=== PATIENT | female | born 1995 | race American Indian/Alaskan Native ===

== ENCOUNTER 2016-12-04 15:53 | Emergency (ER) | payer MEDICAID ==
[2016-12-04 16:50] VITALS: BP 99/60
--- NOTE | 2016-12-04 17:07 | EDM.PDOC ---
ED HPI GENERAL MEDICAL PROBLEM - General Chief Complaint: ENT Problem Stated Complaint: RT EAR Time Seen by Provider: 12/04/16 17:06 Source of Information: Reports: Patient History Limitations: Reports: No Limitations - History of Present Illness Onset: Today Duration: Other (right ear discomfort with drainage began today) Right Ear Pain Score (Numeric/FACES): 8 - Related Data Allergies Allergy/AdvReac Type Severity Reaction Status Date / Time No Known Allergies Allergy Verified 06/02/16 19:17 Home Meds: Home Meds Mupirocin [Mupirocin] 1 dose TOP TID 06/02/16 [History] Past Medical History - Past Health History Medical/Surgical History: Denies Medical/Surgical History Genitourinary History: Reports: Pyelonephritis 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 - Infectious Disease History Infectious Disease History: Reports: None - Past Surgical History HEENT Surgical History: Reports: Other (See Below) Social & Family History - Family History Family Medical History: Noncontributory - Tobacco Use Smoking Status *Q: Never Smoker Second Hand Smoke Exposure: No - Caffeine Use Caffeine Use: Reports: Soda - Alcohol Use Days Per Week of Alcohol Use: 0 - Recreational Drug Use Recreational Drug Use: No - Living Situation & Occupation Living situation: Reports: Single, with Family Occupation: Employed ED ROS GENERAL - Review of Systems Review Of Systems: See Below Constitutional: Reports: No Symptoms HEENT: Reports: Other (drainage/pressure and pain in right ear today. sinus congestion with clear rhinorrhea.) Respiratory: Reports: No Symptoms Cardiovascular: Reports: No Symptoms Endocrine: Reports: No Symptoms GI/Abdominal: Reports: No Symptoms : Reports: No Symptoms Musculoskeletal: Reports: No Symptoms ED EXAM, DIZZINESS - Physical Exam Exam: See Below Exam Limited By: No Limitations General Appearance: Alert Ears: Other (right ear tm clear, canal erythema/edema mod with grayish debris. left ear tm/canal clear.) Nose: Other (nasal mucosa erythema/edema with clear rhinorrhea) Throat/Mouth: Normal Inspection, Normal Lips, Normal Teeth, Normal Gums, Normal Oropharynx, Normal Voice, No Airway Compromise Head Exam: Atraumatic, Normocephalic Neck: Normal Inspection, Supple, Non-Tender, Full Range of Motion Respiratory/Chest: No Respiratory Distress, Lungs Clear, Normal Breath Sounds Cardiovascular: Normal Peripheral Pulses, Regular Rate, Rhythm Neurological: Alert Psychiatric: Normal Affect Skin Exam: Warm, Dry, Intact, Normal Color, Other (no ant/post cervical lymphadenopathy) Course - Vital Signs Last Recorded V/S: Last Vital Signs Temp 37.2 C 12/04/16 16:49 Pulse 97 12/04/16 16:49 Resp 16 12/04/16 16:49 BP 99/60 12/04/16 16:49 Pulse Ox 100 12/04/16 16:49 Departure - Departure Time of Disposition: 17:11 Disposition: Home, Self-Care 01 Condition: good Clinical Impression: Otitis externa - Discharge Information Instructions: Otitis Externa, [id number] Forms: ED Department Discharge Additional Instructions: Antibiotic as directed. Tylenol as needed for pain. Sudafed over the counter as needed for sinus congestion. Robitussin over the counter as needed to thin sinus congestion. See your provider if no improvement in 5 days.
== END 2016-12-04 17:27 | disposition home or self-care (01) ==
LOC: DL.ED 15:53
DX: H60.91 Unspecified otitis externa, right ear (principal)
CPT/HCPCS: 99282

== ENCOUNTER 2017-04-13 12:05 | Emergency (ER) | payer MEDICAID ==
[2017-04-13 12:59] VITALS: BP 117/70
--- NOTE | 2017-04-13 13:06 | EDM.PDOC ---
ED HPI GENERAL MEDICAL PROBLEM - General Chief Complaint: ENT Problem Stated Complaint: SINUS PLUGGED, HEADACHE Time Seen by Provider: 04/13/17 12:40 Source of Information: Reports: Patient History Limitations: Reports: No Limitations - History of Present Illness INITIAL COMMENTS - FREE TEXT/NARRATIVE: Patient presents to the ER with c/o of sinus pressure and drainage, rhinorrhea, watery eyes beginning last evening at 6-7pm. She states her boyfriend has a cold as well. Denies cough, sore throat, fever, chills, N/V/D, sob. She states she is eating and drinking fine. The patient is . 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 Hematologic History: Reports: Anemia - Infectious Disease History Infectious Disease History: Reports: None - Past Surgical History HEENT Surgical History: Reports: Other (See Below) Social & Family History - Family History Family Medical History: Noncontributory - Tobacco Use Smoking Status *Q: Never Smoker Second Hand Smoke Exposure: No - Caffeine Use Caffeine Use: Reports: Soda - Alcohol Use Days Per Week of Alcohol Use: 0 - Recreational Drug Use Recreational Drug Use: No - Living Situation & Occupation Living situation: Reports: Single, with Family Occupation: Employed ED ROS ENT - Review of Systems Review Of Systems: ROS reveals no pertinent complaints other than HPI. ED EXAM, ENT - Physical Exam Exam: See Below Exam Limited By: No Limitations General Appearance: Alert, WD/WN, No Apparent Distress Eye Exam: Bilateral Eye: Normal Inspection, PERRL Ears: Normal External Exam, Normal Canal, Hearing Grossly Normal, Normal TMs Nose: Normal Inspection, Normal Mucousa, No Blood, Clear Rhinorrhea Mouth/Throat: Normal Inspection, Normal Gums, Normal Lips, Normal Oropharynx, Normal Teeth Head: Atraumatic, Normocephalic Neck: Normal Inspection, Supple, Non-Tender, Full Range of Motion Respiratory/Chest: No Respiratory Distress, Lungs Clear, Normal Breath Sounds, No Accessory Muscle Use, Chest Non-Tender Cardiovascular: Normal Peripheral Pulses, Regular Rate, Rhythm, No Edema, No Gallop, No JVD, No Murmur, No Rub GI/Abdominal: Normal Bowel Sounds, Soft, Non-Tender (Female) Exam: Deferred Rectal (Female) Exam: Deferred Back: Normal Inspection, Full Range of Motion Extremities: Normal Inspection, Normal Range of Motion, Non-Tender, No Pedal Edema, Normal Capillary Refill Neurological: Alert, Oriented, Normal Cognition, Normal Gait, No Motor/Sensory Deficits Psychiatric: Normal Affect, Normal Mood Skin: Warm, Dry, Intact, Normal Color, No Rash Lymphatic: No Adenopathy Course - Vital Signs Last Recorded V/S: Last Vital Signs Temp 98.7 F 04/13/17 12:30 Pulse 103 H 04/13/17 12:30 Resp 16 04/13/17 12:30 BP 117/70 04/13/17 12:30 Pulse Ox 100 04/13/17 12:30 - Orders/Labs/Meds Orders: Active Orders 24 hr Category Date Time Status CULTURE STREP A CONFIRMATION [] Stat Lab 04/13/17 12:18 Results STREP SCRN A RAPID W CULT CONF [] Stat Lab 04/13/17 12:18 Results Departure - Departure Time of Disposition: 13:08 Disposition: Home, Self-Care 01 Condition: Good Clinical Impression: Viral URI - Discharge Information Instructions: Upper Respiratory Infection, Adult, [id number] Forms: ED Department Discharge Additional Instructions: Drink plenty of fluids. May purchase saline rinse packages and use as directed. Do NOT use Tap water. Follow directions. Follow up with your primary care facility as needed. May use over the counter Kendall as directed.
== END 2017-04-13 13:27 | disposition home or self-care (01) ==
LOC: DL.ED 12:05
DX: O99.513 Diseases of the respiratory system complicating pregnancy, third trimester (principal); J06.9 Acute upper respiratory infection, unspecified; Z86.2 Personal history of diseases of the blood and blood-forming organs and certain disorders involving the immune mechanism; Z3A.31 31 weeks gestation of pregnancy
CPT/HCPCS: 87081; 87430; 99283

== ENCOUNTER 2017-05-24 09:01 | Inpatient (IN) | payer MEDICAID ==
--- NOTE | 2017-05-24 14:24 | US ---
Clinical history: Biophysical profile 22-year-old high risk (amniotic fluid 6.3 cm on 17 May 2017 ) gravid female. Interpretation: Enlarged uterus with a single live ( heart rate 142 bpm) intrauterine gestation cephalic presentation. Amniotic fluid index today 4.8 cm. Maximum biophysical profile score 10 of 10 reflecting summation score 2 each for the clinical nonstre ss test and the sonographic parameters breathing movements, motion, tone and amniot ic fluid volume.
[2017-05-24] MEDS ORDERED: Acetaminophen 325 MG Tab PO PRN (14:50)
[2017-05-24] MEDS ORDERED: Sodium Chloride 0.9% 10 ML Syringe FLUSH PRN (14:50)
[2017-05-24] MEDS ORDERED: Misoprostol 400 MCG (4 X 100 MCG TAB) RECTAL PRN (14:51)
[2017-05-24] MEDS ORDERED: Ondansetron 4 MG/2 ML SDV IV PRN (14:51)
[2017-05-24] MEDS ORDERED: Carboprost Tromethamine 250 MCG/1 ML Amp IM PRN (14:51)
[2017-05-24] MEDS ORDERED: Lidocaine 1% 30 ML SDV INJECT PRN (14:51)
[2017-05-24] MEDS ORDERED: Methylergonovine 0.2 MG/1 ML Amp IM PRN (14:51)
[2017-05-24] MEDS ORDERED: Zolpidem 5 MG Tab PO PRN (14:55)
[2017-05-24] MEDS ORDERED: Lactated Ringers 1,000 ML IV SCH (15:00)
[2017-05-24] MEDS: Misoprostol 25 MCG (1/4 of 100 MCG) Tab VAG PRN (18:10)
[2017-05-25] MEDS: Misoprostol 25 MCG (1/4 of 100 MCG) Tab VAG PRN (00:13)
[2017-05-25] MEDS ORDERED: hydrOXYzine HCl 25 MG Tab PO PRN (00:52)
[2017-05-25] MEDS ORDERED: fentaNYL 100 MCG/2 ML SDV IVPUSH ONE ×2 (05:31→08:36)
[2017-05-25] MEDS: Lactated Ringers 1,000 ML IV SCH ×5 (05:50→20:10)
[2017-05-25] MEDS ORDERED: Nalbuphine 20 MG/1 ML Amp IM ONE (10:06)
[2017-05-25] MEDS: Oxytocin/Normal Saline 30 UNIT/500 ML BAG IV SCH ×2 (13:59→21:44)
[2017-05-25] MEDS ORDERED: fentaNYL 100 MCG/2 ML SDV ONE (14:31)
--- NOTE | 2017-05-25 15:05 | PCM.SN ---
- Free Text/Narrative Note: Intrathecal. Sitting position, sterile prep and drape. 1 % lidocaine w bicarb to L2 L3 interspace. introducer, 24 ga pencan x 1. Pos CSF, neg heme, neg parasthesia. 0.2 ml 1:1000 epi, 20 mcg pf sufenta, 30 mcg pf fentanyl, 0.4 ml pf ns and 6 mg of 0.75 % pf bupivacaine injected after CSF aspiration. Pt to L lateral position. Procedure time 1430 to 1455
--- NOTE | 2017-05-25 18:43 | PN ---
DATE: 05/25/2017 SUBJECTIVE: This morning patient was reporting feeling those contractions, but only like menstrual cramps and gradually strengthened throughout the morning. She then went on to spontaneous rupture of membranes at 8:33 a.m. with return of clear fluid. Nurse checked her cervix and she was a tight 1 cm dilated at that time. Her contractions progressively got stronger and she was requiring some IV fentanyl and IM Nubain for pain relief and continued to complain of the pain. She eventually made it to about 3 cm dilated, and had an intrathecal placed at 1440 hours for pain relief and after that was able to rest quite comfortably. We continued with the continuous monitoring and been able to push the Pitocin a little bit more to help with active labor management. There have been periods, however, of variable decelerations and even an occasional late deceleration that we have had to shut the Pitocin off for and we have now shut it off for the second time and we will hopefully be restarting it soon. PHYSICAL EXAMINATION: Vital Signs: Blood pressure 113/59, pulse of 62, she is afebrile. Genitourinary: Cervix examined and she is about 6 cm dilated, 90% effaced. head and cervix are very low in the vagina. As a matter of fact, it feels as though she should be complete with how low the head is. However, the cervix is not as tight around the baby's head as I would expect and the baby's head is cone shaped. Baby's station is probably at +1 and the caput at +2 to 3. Palpation of the suture lines would indicate that the baby is currently sitting OP. ASSESSMENT: Induction of labor for oligohydramnios, currently proceeding with intrathecal in place and cervix is noted to be very low, however, should not inhibit vaginal delivery. PLAN: Continue to manage her labor actively and we will get the Pitocin restarted now that tracing has improved. Keep a close eye on how things are progressing and we have also tried repositioning her in bed to see if we can get the baby to spontaneously shift and for that cervix to hopefully melt away since this is a 37 week baby who I am also suspecting some possible growth restriction in. We may be even end up delivering a baby when she is only 8 or 9 cm dilated instead of a full 10. The patient's questions have been answered at this time and she is getting some rest so that she will be able to push well when the time comes. [facility] /[id number] SARBJIT
[2017-05-25] MEDS ORDERED: Citric Acid/Sodium Citrate Solution 30 ML Cup PO ONE (19:44)
[2017-05-25] MEDS ORDERED: Sodium Chloride 0.9% 10 ML Syringe FLUSH PRN (19:44)
[2017-05-25] MEDS ORDERED: Oxytocin/Normal Saline 60 UNIT/1,000 ML BAG ONE (20:36)
[2017-05-25] MEDS ORDERED: Acetaminophen 325 MG Tab PO PRN (21:51)
[2017-05-25] MEDS ORDERED: Naloxone 2 MG/2 ML Syringe IVPUSH PRN (21:51)
[2017-05-25] MEDS ORDERED: Docusate Sodium 100 MG Cap PO PRN (21:51)
[2017-05-25] MEDS ORDERED: Ondansetron 4 MG/2 ML SDV IV PRN (21:51)
[2017-05-25] MEDS ORDERED: ePHEDrine 50 MG/ML SDV IVPUSH PRN (21:51)
[2017-05-25] MEDS ORDERED: Acetaminophen/oxyCODONE 325-5 MG Tab PO PRN (21:51)
[2017-05-25] MEDS ORDERED: diphenhydrAMINE 50 MG/ML SDV IVPUSH PRN (21:51)
[2017-05-25] MEDS ORDERED: Misoprostol 400 MCG (4 X 100 MCG TAB) RECTAL PRN (21:51)
[2017-05-25] MEDS ORDERED: Methylergonovine 0.2 MG/1 ML Amp IM PRN (21:51)
[2017-05-25] MEDS ORDERED: ceFAZolin 2 GM in Sodium Chloride 0.9% 50 ML IV ONE (22:00)
[2017-05-25] MEDS ORDERED: Ketorolac 30 MG/ML SDV IVPUSH SCH (22:00)
[2017-05-25] MEDS ORDERED: Lactated Ringers 1,000 ML IV SCH (22:00)
[2017-05-25] MEDS ORDERED: Measles, Mumps & Rubella Vaccine 0.5 ML SDV SUBCUT ONE (23:00)
--- NOTE | 2017-05-26 01:32 | OR ---
DATE: 05/25/2017 PREPROCEDURE DIAGNOSES: 1. A 37-0/7 weeks' intrauterine based on last menstrual period and 10-week ultrasound. 2. 2, para 0-0-1-0. 3. Oligohydramnios. 4. Arrest of labor despite adequate [place] units with intrauterine pressure catheter. 5. Nonreassuring heart tracing. 6. History of tetrahydrocannabinol use. 7. Pyridoxine deficiency. 8. Thrombocytopenia. 9. History of miscarriage x1. 10.History of first and second trimester bacterial vaginosis. POSTPROCEDURE DIAGNOSES: 1. A 37-0/7 weeks' intrauterine based on last menstrual period and 10-week ultrasound. 2. 2, now para 1-0-1-1. 3. Oligohydramnios. 4. Arrest of labor despite adequate [place] units with intrauterine pressure catheter. 5. Nonreassuring heart tracing. 6. History of tetrahydrocannabinol use. 7. Pyridoxine deficiency. 8. Thrombocytopenia. 9. History of miscarriage x1. 10.History of first and second trimester bacterial vaginosis. 11.Asynclitic presentation of baby. BRIEF HISTORY: A 22-year-old female admitted to the hospital with the above- listed diagnoses and set up for induction of labor because of the oligohydramnios, initiated with Cytotec, and had spontaneous rupture at 1 cm dilated. From there, labor was slow to progress, but when she reached 3 cm, had an intrathecal, and Pitocin was able to be increased, and she made it to 6 cm dilated, but arrested there despite monitoring with IUPC and adequate MVUs being noted. Baby had intermittent issues with minimal variability and lacking accelerations, also random late decelerations, and some periods of deep decelerations, so decision was made to proceed with primary section, which was performed without complications. CONSENT: Discussed with the patient, her boyfriend, and mother the indications, risks, benefits, and alternatives to primary section including, but not limited to, risk of infection and plan for preoperative antibiotics, risk of bleeding, and potential for blood transfusion including its inherent risks, including transmission of bloodborne diseases such as HIV or hepatitis C. Discussed risk of injury during surgery including, but not limited to, uterus fallopian tubes, ovaries, the baby, bladder, ureters, intestines, large blood vessels, nerves, veins, any other adjacent structures, and a plan to repair those as necessary. Also, discussed risk of complications for her and/or the baby that would require transfer to a tertiary center. Their questions were answered, and appropriate consent forms were signed and can be found in the mother's chart. PROCEDURE PERFORMED: Primary low transverse section. ANESTHESIA: Spinal. PROCEDURE IN DETAIL: The patient was brought down to the operating room, and Arteaga indwelling catheter was placed while Doppler was held on for baby's heart tones. The patient was then sat up for spinal anesthesia, and heart tones monitored during that entire process. Once the spinal was in place, she was laid supine, and in the interest of time, Betadine prep was placed and sterile drapes applied in the usual fashion. Time was a consideration due to intolerance being more severe when supine or moving her legs. A skin incision was made with scalpel at 2106 hours and carried down to the underlying fascia using cautery. The fascia was incised in the midline and extended bilaterally using traction and additional cautery. Superior fascial edge grasped with Forrest's, tented up, and rectus muscles dissected off bluntly. Inferior fascial edge then grasped with Forrest's, tented up, and rectus muscles dissected off bluntly and with cautery. The peritoneal cavity was entered with blunt finger dissection, and Walter retractor then was placed. A bladder flap created with Metzenbaum scissors and smooth pickup. Appropriate low transverse uterine incision was then made with scalpel at 2109 hours, and baby delivered at 210 hours, noted to be in right occiput transverse position. When baby was delivered, mouth and nose were bulb suctioned, baby dried and stimulated. Three-vessel umbilical cord was doubly clamped and cut, and baby taken to the warmer for further evaluation with the nurse. The cord blood sample was then obtained, and placenta delivered by cord traction and concomitant uterine massage at 2110 hours. Uterus was then cleared of all clots and debris with dry lap sponge, and any bleeders clamped with Allen. A running lock stitch of 0 Vicryl was used in the usual fashion to close the hysterotomy site. A second imbricating stitch of 0 Vicryl was then placed, and excellent hemostasis achieved. Hysterotomy site then irrigated and cleared of all clots and debris. Walter retractor was removed, and pericolic gutters were cleared with dry lap sponges. The hysterotomy site was reinspected and remained hemostatic. The peritoneal layer was then closed with a running stitch of 3-0 catgut with good approximation. The fascia was then closed with a running stitch of 0 Vicryl in the usual fashion. The subcutaneous tissue was then irrigated and cleared of any clots and debris, and skin was closed with shannon. The patient tolerated the procedure well, and the skin closure was at 2138 hours. FINDINGS: Viable female with scores of 9 and 9 and weight 2550 g, 5 pounds 10 ounces. Baby was noted to be asynclitic. Placenta was inspected, and there were some areas for concern of old infarct with fatty precalcified regions. Placenta was overall somewhat small as well. URINE OUTPUT: 600 mL, clear. FLUIDS: 1200 mL of lactated Ringer's and 300 mL with Pitocin. ESTIMATED BLOOD LOSS: 600 mL. COMPLICATIONS: None. DISPOSITION: Mother to go to the PACU and baby to go to the nursery until they are reunited. [facility] /[id number] SARBJIT
[2017-05-26] MEDS: Ketorolac 30 MG/ML SDV IVPUSH SCH ×3 (03:29→15:56)
--- NOTE | 2017-05-26 11:16 | PN ---
DATE: 05/26/2017 SUBJECTIVE: Postoperative day #1, approximately 14 hours after primary C- section in a 22-year-old, 2, para 1-0-1-1 patient; and she is doing well, has not been up to ambulate yet. She is tolerating regular diet and passing some flatus. Arteaga catheter remains in place. She denies any chest pain or shortness of breath. No nausea or vomiting. Reports some soreness at the operative site, but otherwise, is doing well and bottle feeding her baby. Denies acute concerns today but would hope to go home on postoperative day #2. OBJECTIVE: Vital Signs: Temperature is 98.7, blood pressure 101/59, respiratory rate of 16, and O2 saturations 99% on room air. Heart: Regular without murmur. Lungs: Clear bilaterally. Abdomen: Soft and fundus is firm below the umbilicus. Dressing is in place. Extremities: SCDs and ILIA hose are on. No tenderness. The patient does report some swelling. LABORATORY DATA: Hemoglobin is down to 8.7 from an admission of 9.1. Platelets are stable at 156. ASSESSMENT: 1. Postoperative day #1, status post primary . 2. Anemia of and acute blood loss. 3. Post induction of labor for oligohydramnios, complicated by nonreassuring heart tones and arrest of descent because of the baby being asynclitic. PLAN: Continue normal postoperative cares. Mother will get an MMR because she was nonimmune. We have answered her questions regarding the oligohydramnios and treatment of the anemia, and we will make sure that she is getting iron TID. Otherwise, no acute concerns. Discussed probable discharge postop day #3 unless she is doing very well tomorrow, then I would entertain discharge on postop day #1. [facility] /[id number] SARBJIT
[2017-05-26] MEDS ORDERED: Oxytocin/Normal Saline 30 UNIT/500 ML BAG IV ONE (13:20)
[2017-05-26] MEDS: Simethicone 80 MG Tab.Chew PO PRN ×3 (13:30→23:34)
[2017-05-26] MEDS: Ferrous Sulfate 325 MG Tab PO SCH ×2 (13:31→17:21)
[2017-05-26] MEDS: Acetaminophen/oxyCODONE 325-5 MG Tab PO PRN ×2 (17:21→23:35)
[2017-05-26] MEDS: Ibuprofen 800 MG Tab PO PRN (23:34)
[2017-05-27] MEDS: Acetaminophen/oxyCODONE 325-5 MG Tab PO PRN ×4 (05:31→22:06)
[2017-05-27] MEDS: Ferrous Sulfate 325 MG Tab PO SCH ×3 (08:13→17:07)
[2017-05-27] MEDS: Ibuprofen 800 MG Tab PO PRN ×2 (08:13→17:07)
[2017-05-27] MEDS ORDERED: fentaNYL 100 MCG/2 ML SDV ITHECAL ONE (11:57)
--- NOTE | 2017-05-27 12:11 | PN ---
DATE: 05/27/2017 SUBJECTIVE: Postoperative day #2, status post primary section. Reports that overall she is doing fairly well. Pain is still more than she anticipated it would be and she reports feeling extremely tired, otherwise, has minimal bleeding. No foul-smelling drainage or discharge. No fever, chills. No chest pain or shortness of breath, tolerating regular diet, passing flatus, and voiding without difficulties. OBJECTIVE: General: A well-appearing, 22-year-old female, mild pallor is noted. Vital Signs: Temperature is 98.2, pulse is 77, blood pressure is 109/68, respiratory rate of 16, and O2 saturations 100% on room air. Heart: Regular without murmur. Lungs: Clear to auscultation bilaterally. Abdomen: Soft without masses, and fundus is firm below the umbilicus. Aquacel dressing is in place without strike through. Extremities: No edema, erythema, or tenderness noted. LABORATORY: Shows postoperative hemoglobin is down to 8.7, and platelets are 156. ASSESSMENT: 1. Postoperative day #2, status post primary . 2. 2, now para 1-0-1-1. 3. Rubella nonimmune. An MMR has been ordered. 4. Thrombocytopenia of . 5. Pyridoxine deficiency. PLAN: Anticipate continued normal postoperative cares, and anticipate discharge home tomorrow. Expectations were reviewed with the mother and her questions were answered. [facility] /[id number]
[2017-05-28] MEDS: Acetaminophen/oxyCODONE 325-5 MG Tab PO PRN ×2 (01:07→08:18)
[2017-05-28] MEDS: Ibuprofen 800 MG Tab PO PRN ×2 (01:10→08:18)
[2017-05-28] MEDS: Ferrous Sulfate 325 MG Tab PO SCH (08:18)
[2017-05-28 09:10] VITALS: BP 114/67
[2017-05-28] MEDS ORDERED: Morphine PF 1 MG/ML Amp IVPUSH ONE (11:09)
[2017-05-28] MEDS ORDERED: Ketorolac 30 MG/ML SDV IVPUSH ONE (11:09)
[2017-05-28] MEDS ORDERED: ePHEDrine 50 MG/ML SDV IV ONE (11:09)
[2017-05-28] MEDS ORDERED: Dexamethasone 4 MG/ML SDV IV ONE (11:09)
[2017-05-28] MEDS ORDERED: Ondansetron 4 MG/2 ML SDV IV ONE (11:09)
[2017-05-28] MEDS ORDERED: Lactated Ringers 1,000 ML IV ONE (11:09)
--- NOTE | 2017-05-29 03:04 | DISCH ---
ADMITTING DIAGNOSES: 1. A 36 and 6/7 weeks intrauterine . 2. Oligohydramnios. 3. Thrombocytopenia of . 4. Paroxetine deficiency. 5. History of marijuana abuse. 6. First and second trimester bacterial vaginosis. 7. History of spontaneous x1. 8. Blood type A positive, rubella nonimmune, group B strep negative. DISCHARGE DIAGNOSES: 1. A 37 weeks intrauterine . 2. Oligohydramnios. 3. Thrombocytopenia of . 4. Paroxetine deficiency. 5. History of marijuana abuse. 6. First and second trimester bacterial vaginosis. 7. History of spontaneous x1. 8. Blood type A positive, rubella nonimmune, group B strep negative. 9. Primary low transverse section due to nonreassuring heart tracing and arrest of labor due to asynclitic. 10.Anemia of blood loss. BRIEF HISTORY: A 22-year-old female, admitted to the hospital the night before being 37 weeks' gestation for Cytotec induction because of oligohydramnios and an FRANCHESCA of 4.3. She later went on to spontaneous rupture and only 1 cm and was augmented further with Pitocin and once she reached 6 cm arrested and had an IUPC placed which proved adequate [place] units. Baby had increasing difficulties with tolerating labor and was called for and performed without complications under a spinal anesthetic. Prior to this, the patient had an intrathecal. After delivery, she has been doing well. HOSPITAL COURSE: Hospital course has been good. She has been ambulating, tolerating regular diet. Bleeding has been minimal. She has had no fever, chills, chest pain, or shortness of breath. Bottle feeding her baby and denies any other specific concerns or problems. DISCHARGE CONDITION: Good. PHYSICAL EXAMINATION: Vital Signs: Temperature is 98.6, pulse 80, blood pressure 114/67, respiratory rate of 16, and O2 saturations 100% on room air. Heart: Regular without murmur. Lungs: Clear bilaterally. Abdomen: Soft without masses. Aquacel dressing in place with no strike through. Extremities: Trace edema. No erythema or tenderness noted. LABORATORY DATA: Discharge hemoglobin 8.7 and platelets of 156. Admission hemoglobin was 9.1 and platelets of 174. Lowest platelet during her stay was 149. DISPOSITION: Home with family. MEDICATIONS: 1. Percocet 5/325 one to two tablets every 4 to 6 hours as needed for pain. 2. Ibuprofen 600 mg every 6 hours as needed for pain. 3. Iron 325 mg twice daily. 4. Colace 100 mg twice daily as needed for constipation. 5. Continue her vitamin B6. DISCHARGE INSTRUCTIONS: Routine postoperative care instructions will be given including not driving, not lifting anything strenuous, reporting to the hospital if she has any problems with fever, chills, foul-smelling drainage, discharge, redness, or seepage of the surgical wound or any other concerns. FOLLOWUP: The patient will be seen in the office on Wednesday anticipating staple removal at that time, and she will also need to make a 6-week care appointment. Her questions have been answered. [facility] /[id number] SARBJIT
== END 2017-05-28 11:10 | disposition home or self-care (01) | DRG 765 ==
LOC: DL.US 09:01 → DL.MS 09:01 → INTOOBSV 14:07 → UNDOADMOB 14:07 → DL.OB 14:07 → OBSVTOIN 05-25 21:09 → DL.MS 05-27 13:10
PROVIDERS: ADMIT Family Medicine; ATTEND Family Medicine
PROC: 00HU33Z Insertion of Infusion Device into Spinal Canal, Percutaneous Approach (ICD-10-PCS; 2017-05-25)
PROC: 3E0R3BZ Introduction of Anesthetic Agent into Spinal Canal, Percutaneous Approach (ICD-10-PCS; 2017-05-25)
PROC: 10D00Z1 Extraction of Products of Conception, Low, Open Approach (ICD-10-PCS; principal; 2017-05-26)
PROC: 3E0P3VZ Introduction of Hormone into Female Reproductive, Percutaneous Approach (ICD-10-PCS; 2017-05-26)
PROC: 10H07YZ Insertion of Other Device into Products of Conception, Via Natural or Artificial Opening (ICD-10-PCS; 2017-05-26)
PROC: 4A1H7CZ Monitoring of Products of Conception, Cardiac Rate, Via Natural or Artificial Opening (ICD-10-PCS; 2017-05-26)
PROC: 3E0234Z Introduction of Serum, Toxoid and Vaccine into Muscle, Percutaneous Approach (ICD-10-PCS; 2017-05-26)
DX: O41.03X1 Oligohydramnios, third trimester, fetus 1 (principal); O99.12 Other diseases of the blood and blood-forming organs and certain disorders involving the immune mechanism complicating childbirth; D62 Acute posthemorrhagic anemia; O99.02 Anemia complicating childbirth; D69.6 Thrombocytopenia, unspecified; Z37.0 Single live birth; Z3A.36 36 weeks gestation of pregnancy; Z23 Encounter for immunization
CPT/HCPCS: 01961; 01967; 36415; 59025; 76819; 80305; 85025; 85027; 86850; 86900; 86901; 90707; 94010; A9270-GY; G0010; J0690; J1100; J1885; J2274; J2300; J2405; J2590; J3010; J7050; J7120

== ENCOUNTER 2017-06-12 15:47 | Emergency (ER) | payer MEDICAID ==
[2017-06-12] MEDS ORDERED: Sodium Chloride 0.9% 10 ML Syringe FLUSH PRN (17:37)
[2017-06-12] MEDS ORDERED: Lactated Ringers 1,000 ML IV ONE (17:37)
[2017-06-12] MEDS ORDERED: cefTRIAXone 1 GM in Sodium Chloride 0.9% 50 ML IV ONE (17:38)
[2017-06-12] MEDS ORDERED: Ketorolac 30 MG/ML SDV IVPUSH ONE (17:39)
[2017-06-12] MEDS ORDERED: Sodium Chloride 0.9% 1,000 ML IV ONE (17:39)
[2017-06-12 18:15] LABS: CHLORIDE,CL 107 mmol/L (101-111); SODIUM,NA 143 mmol/L (135-145)
[2017-06-12] MEDS ORDERED: Potassium Chloride 10 MEQ Tab.ER PO ONE (18:16)
[2017-06-12] MEDS ORDERED: Potassium Chloride 10 MEQ in Premix Bag 1 BAG IV ONE (18:17)
[2017-06-12] MEDS ORDERED: Lidocaine 1% 10 ML MDV INJECT ONE (18:18)
[2017-06-12] MEDS ORDERED: Lidocaine 1% 30 ML SDV INJECT ONE (18:35)
--- NOTE | 2017-06-12 18:41 | EDM.PDOC ---
Scribed by Viridiana Medina 06/12/17 1841 for Scout Sanders MD ED HPI GENERAL MEDICAL PROBLEM - General Chief Complaint: Flank Pain Stated Complaint: POSSIBLE UTI, [id number] Time Seen by Provider: 06/12/17 16:45 Source of Information: Reports: Patient, RN, RN Notes Reviewed History Limitations: Reports: No Limitations - History of Present Illness INITIAL COMMENTS - FREE TEXT/NARRATIVE: Patient complains of 3 days of worsening right flank and right sided abdominal pain with slightly dark urine. Admits to fevers, chills, nausea and a headache. Patient also complaints of right earache. Patient had a 3 weeks ago but denies any problems with incision or pelvicpain. Location: Reports: Abdomen Quality: Reports: Ache Severity: Severe Improves with: Reports: None Worsens with: Reports: None Associated Symptoms: Reports: No Other Symptoms Right Flank Pain Score (Numeric/FACES): 5 - Related Data Allergies Allergy/AdvReac Type Severity Reaction Status Date / Time No Known Allergies Allergy Verified 05/17/17 10:03 Home Meds: Home Meds Pyridoxine HCl [Vitamin B-6] 1 tab PO DAILY 05/15/17 [History] Ferrous Sulfate 325 mg PO DAILY 05/17/17 [History] Acetaminophen/oxyCODONE [Percocet 325-5 MG] 2 tab PO Q4H PRN #30 tablet [Rx] Docusate Sodium [Colace] 100 mg PO Q12H PRN #60 cap 05/28/17 [Rx] Ibuprofen [IJD: Ibuprofen] 600 mg PO Q6H PRN #30 tablet 05/28/17 [Rx] Past Medical History - Past Health History Medical/Surgical History: Denies Medical/Surgical History HEENT History: Reports: Impaired Vision Cardiovascular History: Reports: None Respiratory History: Reports: None Gastrointestinal History: Reports: None Genitourinary History: Reports: Pyelonephritis 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: , 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 Musculoskeletal History: Reports: None Neurological History: Reports: None Psychiatric History: Reports: None Endocrine/Metabolic History: Reports: None Hematologic History: Reports: Anemia Immunologic History: Reports: None Oncologic (Cancer) History: Reports: None Dermatologic History: Reports: Other (See Below) Other Dermatologic History: tattoos - Infectious Disease History Infectious Disease History: Reports: None - Past Surgical History Head Surgeries/Procedures: Reports: None Female Surgical History: Reports: Section Neurological Surgical History: Reports: None Social & Family History - Family History Family Medical History: Noncontributory - Tobacco Use Smoking Status *Q: Never Smoker Second Hand Smoke Exposure: No - Caffeine Use Caffeine Use: Reports: Soda - Alcohol Use Days Per Week of Alcohol Use: 0 - Recreational Drug Use Recreational Drug Use: No - Living Situation & Occupation Living situation: Reports: Single, with Family Occupation: Employed ED ROS GENERAL - Review of Systems Review Of Systems: ROS reveals no pertinent complaints other than HPI. ED EXAM, RENAL/ - Physical Exam Exam: See Below Exam Limited By: No Limitations General Appearance: Alert, WD/WN, No Apparent Distress Eye Exam: Bilateral Eye: Normal Inspection Ears: Other (Right TM retracted with clear air=fluid level. No perforation.No drainage.) Throat/Mouth: Normal Inspection, Normal Lips, Normal Teeth, Normal Gums, Normal Oropharynx, Normal Voice, No Airway Compromise Head: Atraumatic, Normocephalic Neck: Normal Inspection, Supple, Non-Tender, Full Range of Motion Respiratory/Chest: No Respiratory Distress, Lungs Clear, Normal Breath Sounds, No Accessory Muscle Use, Chest Non-Tender Cardiovascular: Regular Rate, Rhythm, Tachycardia GI/Abdominal: Normal Bowel Sounds, Soft, No Distention, Other (Total to palpation at RUQ and RLQ. Well healed with no sign of infection. No peritoneal signs.). No: Guarding, Rigid, Rebound (Female) Exam: Deferred Rectal (Female) Exam: Deferred Back Exam: CVA Tenderness (R) Extremities: Normal Inspection, Normal Range of Motion, Non-Tender, Normal Capillary Refill, No Pedal Edema Neurological: Alert, Oriented, CN II-XII Intact, Normal Cognition, Normal Gait, Normal Reflexes, No Motor/Sensory Deficits Psychiatric: Normal Affect, Normal Mood Skin Exam: Warm, Dry, Intact, Normal Color, No Rash Course - Vital Signs Last Recorded V/S: Last Vital Signs Temp 37.4 C 06/12/17 18:37 Pulse 105 H 06/12/17 18:37 Resp 16 06/12/17 18:37 BP 106/63 06/12/17 18:37 Pulse Ox 98 06/12/17 18:37 - Orders/Labs/Meds Orders: Active Orders 24 hr Category Date Time Status Peripheral IV Care [RC] . DIRECTED Care 06/12/17 17:37 Active CULTURE BLOOD [BC] Stat Lab 06/12/17 17:45 Received CULTURE BLOOD [BC] Stat Lab 06/12/17 17:50 Received CULTURE URINE [RM] Stat Lab 06/12/17 16:31 Received Potassium Chloride [KCl 10 MEQ in Water 100 ML] 10 meq Med 06/12/17 18:17 Active Premix Bag 1 bag IV ONETIME Sodium Chloride 0.9% [Saline Flush] Med 06/12/17 17:37 Active 10 ml FLUSH ASDIRECTED PRN Blood Culture x2 Reflex Set [OM.PC] Stat Oth 06/12/17 17:37 Ordered Peripheral IV Insertion Adult [OM.PC] Stat Oth 06/12/17 17:37 Ordered Medication Orders Potassium Chloride 10 meq/ (Premix) 100 mls @ 100 mls/hr IV ONETIME ONE Stop: 06/12/17 19:16 Sodium Chloride (Saline Flush) 10 ml FLUSH ASDIRECTED PRN PRN Reason: Keep Vein Open Last Admin: 06/12/17 18:00 Dose: 10 ml Labs: Laboratory Tests 06/12/17 06/12/17 06/12/17 Range/Units 16:31 16:31 17:45 WBC 8.2 (5.0-10.0) 10^3/uL RBC 4.46 (4.2-5.4) 10^6/uL Hgb 10.9 L D (12.0-16.0) g/dL Hct 35.8 L (37.0-47.0) % MCV 80.3 (80-100) fL MCH 24.4 L (27.0-34.0) pg MCHC 30.4 L (33.0-35.0) g/dL Plt Count 249 D (150-450) 10^3/uL Neut % (Auto) 86.6 H (42.2-75.2) % Lymph % (Auto) 7.6 L (20.5-50.1) % [place] % (Auto) 5.3 (2-8) % Eos % (Auto) 0.4 L (1.0-3.0) % Baso % (Auto) 0.1 (0.0-1.0) % Sodium (135-145) mmol/L Potassium (3.6-5.0) mmol/L Chloride (101-111) mmol/L Carbon Dioxide (21.0-31.0) mmol/L Anion Gap BUN (7-18) mg/dL Creatinine (0.6-1.3) mg/dL Est Cr Clr Drug Dosing mL/min Estimated GFR (MDRD) BUN/Creatinine Ratio Glucose (74-105) mg/dL Lactic Acid (0.5-2.2) mmol/L Calcium (8.4-10.2) mg/dl Total Bilirubin (0.2-1.0) mg/dL AST (10-42) IU/L ALT (10-60) IU/L Alkaline Phosphatase (42-121) IU/L Total Protein (6.7-8.2) g/dl Albumin (3.2-5.5) g/dl Globulin Albumin/Globulin Ratio Urine Color Yellow (YELLOW) Urine Appearance Cloudy (CLEAR) Urine pH 6.0 (5.0-9.0) Ur Specific [place] 1.020 (1.005-1.030) Urine Protein 30 H (NEGATIVE) Urine Glucose (UA) Negative (NEGATIVE) Urine Ketones Trace H (NEGATIVE) Urine Occult Blood Small H (NEGATIVE) Urine Nitrite Positive H (NEGATIVE) Urine Bilirubin Negative (NEGATIVE) Urine Urobilinogen 0.2 (0.2-1.0) mg/dL Ur Leukocyte Esterase Moderate H (NEGATIVE) Urine RBC 5-10 H /HPF Urine WBC >100 H (0-5/HPF) /HPF Ur Epithelial Cells Moderate H /HPF Urine Bacteria Moderate H (0-FEW/HPF) /HPF Urine Mucus Few H /LPF Urine HCG, Qual Negative 06/12/17 06/12/17 Range/Units 17:45 17:45 WBC (5.0-10.0) 10^3/uL RBC (4.2-5.4) 10^6/uL Hgb (12.0-16.0) g/dL Hct (37.0-47.0) % MCV (80-100) fL MCH (27.0-34.0) pg MCHC (33.0-35.0) g/dL Plt Count (150-450) 10^3/uL Neut % (Auto) (42.2-75.2) % Lymph % (Auto) (20.5-50.1) % [place] % (Auto) (2-8) % Eos % (Auto) (1.0-3.0) % Baso % (Auto) (0.0-1.0) % Sodium 143 (135-145) mmol/L Potassium 2.9 L (3.6-5.0) mmol/L Chloride 107 (101-111) mmol/L Carbon Dioxide 24.0 (21.0-31.0) mmol/L Anion Gap 14.9 BUN 9 (7-18) mg/dL Creatinine 0.8 (0.6-1.3) mg/dL Est Cr Clr Drug Dosing 96.43 mL/min Estimated GFR (MDRD) > 60 BUN/Creatinine Ratio 11.25 Glucose 106 H (74-105) mg/dL Lactic Acid 0.8 (0.5-2.2) mmol/L Calcium 9.0 (8.4-10.2) mg/dl Total Bilirubin 0.6 (0.2-1.0) mg/dL AST 20 (10-42) IU/L ALT 16 (10-60) IU/L Alkaline Phosphatase 62 (42-121) IU/L Total Protein 7.6 (6.7-8.2) g/dl Albumin 3.6 (3.2-5.5) g/dl Globulin 4.0 Albumin/Globulin Ratio 0.90 Urine Color (YELLOW) Urine Appearance (CLEAR) Urine pH (5.0-9.0) Ur Specific [place] (1.005-1.030) Urine Protein (NEGATIVE) Urine Glucose (UA) (NEGATIVE) Urine Ketones (NEGATIVE) Urine Occult Blood (NEGATIVE) Urine Nitrite (NEGATIVE) Urine Bilirubin (NEGATIVE) Urine Urobilinogen (0.2-1.0) mg/dL Ur Leukocyte Esterase (NEGATIVE) Urine RBC /HPF Urine WBC (0-5/HPF) /HPF Ur Epithelial Cells /HPF Urine Bacteria (0-FEW/HPF) /HPF Urine Mucus /LPF Urine HCG, Qual Meds: Medications Generic Name Dose Route Start Last Admin Trade Name Freq PRN Reason Stop Dose Admin Potassium Chloride 10 meq/ 100 mls @ 100 mls/hr 06/12/17 18:17 Premix IV 06/12/17 19:16 ONETIME ONE Sodium Chloride 10 ml 06/12/17 17:37 06/12/17 18:00 Saline Flush FLUSH 10 ml ASDIRECTED PRN Administration Keep Vein Open Discontinued Medications Generic Name Dose Route Start Last Admin Trade Name Kika PRN Reason Stop Dose Admin Lactated Ringer's 1,000 mls @ 999 mls/hr 06/12/17 17:37 Ringers, Lactated IV 06/12/17 18:37 .BOLUS ONE Ceftriaxone Sodium 1 gm/ 50 mls @ 100 mls/hr 06/12/17 17:38 06/12/17 18:07 Sodium Chloride IV 06/12/17 18:07 100 mls/hr ONETIME ONE Administration Sodium Chloride 1,000 mls @ 999 mls/hr 06/12/17 17:39 06/12/17 18:03 Normal Saline IV 06/12/17 18:39 999 mls/hr .BOLUS ONE Administration Ketorolac Tromethamine 30 mg 06/12/17 17:39 06/12/17 18:04 Toradol IVPUSH 06/12/17 17:40 30 mg ONETIME ONE Administration Lidocaine HCl 1 ml 06/12/17 18:18 Xylocaine 1% INJECT 06/12/17 18:19 ONETIME ONE Lidocaine HCl 1 ml 06/12/17 18:35 Xylocaine-Mpf 1% INJECT 06/12/17 18:36 ONETIME ONE Potassium Chloride 40 meq 06/12/17 18:16 06/12/17 18:27 Klor-Con 10 PO 06/12/17 18:17 40 meq ONETIME ONE Administration Departure - Departure Time of Disposition: 19:30 Disposition: Home, Self-Care 01 Condition: Fair Clinical Impression: Pyelonephritis, Hypokalemia Barotitis Qualifiers: Encounter type: initial encounter Qualified Code(s): T70.0XXA - Otitic barotrauma, initial encounter - Discharge Information Instructions: Barotitis Media, Pyelonephritis, Adult, [id number], Hypokalemia Forms: ED Department Discharge Additional Instructions: Rx: Cipro 500mg. Rx: Claritin D24 hour. Rx: Potassium Chloride 20mEq Drink plenty of water. Follow up in clinic for urine recheck in 7-10 days. Frequently pinch nose and blow until right ear pops. Return to ER if worse at any time. - My Orders Last 24 Hours: My Active Orders 06/12/17 16:31 CULTURE URINE [RM] Stat 06/12/17 17:37 Peripheral IV Care [RC] . DIRECTED Sodium Chloride 0.9% [Saline Flush] 10 ml FLUSH ASDIRECTED PRN Blood Culture x2 Reflex Set [OM.PC] Stat Peripheral IV Insertion Adult [OM.PC] Stat 06/12/17 17:45 CULTURE BLOOD [BC] Stat 06/12/17 17:50 CULTURE BLOOD [BC] Stat 06/12/17 18:17 Potassium Chloride [KCl 10 MEQ in Water 100 ML] 10 meq Premix Bag 1 bag IV ONETIME - Assessment/Plan Last 24 Hours: My Active Orders 06/12/17 16:31 CULTURE URINE [RM] Stat 06/12/17 17:37 Peripheral IV Care [RC] . DIRECTED Sodium Chloride 0.9% [Saline Flush] 10 ml FLUSH ASDIRECTED PRN Blood Culture x2 Reflex Set [OM.PC] Stat Peripheral IV Insertion Adult [OM.PC] Stat 06/12/17 17:45 CULTURE BLOOD [BC] Stat 06/12/17 17:50 CULTURE BLOOD [BC] Stat 06/12/17 18:17 Potassium Chloride [KCl 10 MEQ in Water 100 ML] 10 meq Premix Bag 1 bag IV ONETIME I have read and agree with the documentation that has been completed regarding this visit. By signing this record, I attest that the documentation was completed in my physical presence and is an accurate record of the encounter.
[2017-06-12 21:03] VITALS: BP 109/69
== END 2017-06-12 20:20 | disposition home or self-care (01) ==
LOC: DL.ED 15:47
DX: N12 Tubulo-interstitial nephritis, not specified as acute or chronic (principal); E87.6 Hypokalemia; T70.0XXA Otitic barotrauma, initial encounter; Z79.899 Other long term (current) drug therapy
CPT/HCPCS: 36415; 80053; 81001; 81025; 83605; 85025; 87040; 87077; 87086; 87088; 87186; 96365; 96368; 96375; 99284; A9270; J0696; J1885; J3480; J7030; J7050

== ENCOUNTER 2018-10-29 10:34 | Emergency (ER) | payer MEDICAID ==
[2018-10-29 10:55] VITALS: BP 108/70
[2018-10-29] MEDS ORDERED: Sodium Chloride 0.9% 10 ML Syringe FLUSH PRN (11:03)
[2018-10-29 11:39] LABS: ANION GAP 14.3; CHLORIDE,CL 108 mmol/L (101-111); SODIUM,NA 142 mmol/L (135-145)
[2018-10-29] MEDS ORDERED: diphenhydrAMINE 50 MG/ML SDV IVPUSH ONE (11:52)
[2018-10-29] MEDS ORDERED: Ketorolac 30 MG/ML SDV IVPUSH ONE (11:52)
[2018-10-29] MEDS ORDERED: Lactated Ringers 1,000 ML IV ONE (11:52)
[2018-10-29] MEDS ORDERED: Metoclopramide 10 MG/2 ML SDV IVPUSH ONE (11:52)
[2018-10-29] MEDS ORDERED: LORazepam 2 MG/ML Syringe IVPUSH ONE (12:25)
--- NOTE | 2018-10-29 12:38 | EDM.PDOC ---
Scribed by Viridiana Medina 10/29/18 1215 for Isamar Rivera NP ED HPI GENERAL MEDICAL PROBLEM - General Chief Complaint: Headache Stated Complaint: HEADACHE Time Seen by Provider: 10/29/18 11:30 Source of Information: Reports: Patient, RN, RN Notes Reviewed History Limitations: Reports: No Limitations - History of Present Illness INITIAL COMMENTS - FREE TEXT/NARRATIVE: Patient reports a headache for 2 days, frontal headache. She has a sharp/ throbbing headache, 7/10 with severity. It is worse with moving and light. No known alleviating factors. She has associated nausea which has resolved. Denies having dizziness. She has had a sore throat since this a.m. HE also reports having a fever, chills, and coughing. No appetite since Wednesday. This is the worst headache of her life. Denies chest pain, shortness of breath, numbness, weakness and neck stiffness. Onset Date: 10/27/18 Duration: Getting Worse Location: Reports: Head Quality: Reports: Sharp, Throbbing Severity: Severe Improves with: Reports: None Worsens with: Reports: None Associated Symptoms: Reports: No Other Symptoms Headache Pain Score (Numeric/FACES): 7 - Related Data Allergies Allergy/AdvReac Type Severity Reaction Status Date / Time No Known Allergies Allergy Verified 10/29/18 10:49 Home Meds: Home Meds Sertraline [Zoloft] 50 mg PO DAILY 02/03/18 [History] Past Medical History - Past Health History Medical/Surgical History: Denies Medical/Surgical History HEENT History: Reports: Impaired Vision, Other (See Below) (migraines) Cardiovascular History: Reports: None Respiratory History: Reports: None Gastrointestinal History: Reports: None Genitourinary History: Reports: Pyelonephritis 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: , 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 Musculoskeletal History: Reports: None Neurological History: Reports: None Psychiatric History: Reports: Anxiety, Depression Endocrine/Metabolic History: Reports: None Hematologic History: Reports: Anemia Immunologic History: Reports: None Oncologic (Cancer) History: Reports: None Dermatologic History: Reports: Other (See Below) Other Dermatologic History: tattoos - Infectious Disease History Infectious Disease History: Reports: None - Past Surgical History Head Surgeries/Procedures: Reports: None HEENT Surgical History: Reports: Other (See Below) Other HEENT Surgeries/Procedures: blepharoplasty Female Surgical History: Reports: Section Neurological Surgical History: Reports: None Social & Family History - Family History Family Medical History: Noncontributory - Tobacco Use Smoking Status *Q: Never Smoker Second Hand Smoke Exposure: No - Caffeine Use Caffeine Use: Reports: Soda Other Caffeine Use: Soda every day. - Recreational Drug Use Recreational Drug Use: No - Living Situation & Occupation Living situation: Reports: Single, with Family Occupation: Employed ED ROS GENERAL - Review of Systems Review Of Systems: ROS reveals no pertinent complaints other than HPI. - Physical Exam Exam: See Below Exam Limited By: No Limitations General Appearance: Alert, WD/WN, No Apparent Distress Eye Exam: Bilateral Eye: EOMI, Normal Inspection, PERRL Ears: Normal External Exam, Normal Canal, Hearing Grossly Normal, Normal TMs Nose: Normal Inspection, Normal Mucosa, No Blood Throat/Mouth: Normal Inspection, Normal Lips, Normal Teeth, Normal Gums, Normal Oropharynx, Normal Voice, No Airway Compromise Head Exam: Atraumatic, Normocephalic Neck: Normal Inspection, Supple, Non-Tender, Full Range of Motion Respiratory/Chest: No Respiratory Distress, Lungs Clear, Normal Breath Sounds, No Accessory Muscle Use, Chest Non-Tender Cardiovascular: Normal Peripheral Pulses, Regular Rate, Rhythm, No Edema, No Gallop, No JVD, No Murmur, No Rub GI/Abdominal: Normal Bowel Sounds, Soft, Non-Tender, No Organomegaly, No Distention, No Abnormal Bruit, No Mass (Female) Exam: Deferred Rectal (Female) Exam: Deferred Neuro Exam (Abbreviated): Alert, Oriented, CN II-XII Intact, Normal Cognition, Normal Gait, Normal Reflexes, No Motor/Sensory Deficits Back Exam: Normal Inspection, Full Range of Motion, NT Extremities: Normal Inspection, Normal Range of Motion, Non-Tender, No Pedal Edema, Normal Capillary Refill Psychiatric: Normal Affect, Normal Mood Skin Exam: Warm, Dry, Intact, Normal Color, No Rash Course - Vital Signs Last Recorded V/S: Last Vital Signs Temp 100.3 F 10/29/18 11:26 Pulse 107 H 10/29/18 10:50 Resp 20 10/29/18 10:50 BP 108/70 10/29/18 10:50 Pulse Ox 98 10/29/18 10:50 - Orders/Labs/Meds Orders: Active Orders 24 hr Category Date Time Status Peripheral IV Care [RC] . DIRECTED Care 10/29/18 11:04 Active Head wo Cont [CT] Stat Exams 10/29/18 11:54 Ordered CULTURE BLOOD [BC] Stat Lab 10/29/18 11:15 Ordered CULTURE BLOOD [BC] Stat Lab 10/29/18 11:15 Ordered CULTURE STREP A CONFIRMATION [RM] Stat Lab 10/29/18 11:06 Results DRUG SCREEN URINE BIORAD [URCHEM] Stat Lab 10/29/18 12:25 Ordered ETOH [ETHANOL BLOOD MEDICAL] [CHEM] Stat Lab 10/29/18 12:25 Ordered LACTIC ACID [CHEM] Stat Lab 10/29/18 11:15 Ordered STREP SCRN A RAPID W CULT CONF [RM] Stat Lab 10/29/18 11:06 Results Lactated Ringers [Ringers, Lactated] 1,000 ml Med 10/29/18 11:52 Active IV .BOLUS Sodium Chloride 0.9% [Saline Flush] Med 10/29/18 11:03 Active 10 ml FLUSH ASDIRECTED PRN Blood Culture x2 Reflex Set [OM.PC] Stat Oth 10/29/18 11:15 Ordered Peripheral IV Insertion Adult [OM.PC] Routine Oth 10/29/18 11:03 Ordered Medication Orders Lactated Ringer's (Ringers, Lactated) 1,000 mls @ 999 mls/hr IV .BOLUS ONE Stop: 10/29/18 12:52 Last Admin: 10/29/18 12:16 Dose: 999 mls/hr Sodium Chloride (Saline Flush) 10 ml FLUSH ASDIRECTED PRN PRN Reason: Keep Vein Open Last Admin: 10/29/18 11:50 Dose: 10 ml Labs: Laboratory Tests 10/29/18 10/29/18 10/29/18 Range/Units 11:10 11:10 11:15 WBC 3.4 L (5.0-10.0) 10^3/uL RBC 4.63 (4.2-5.4) 10^6/uL Hgb 12.4 D (12.0-16.0) g/dL Hct 38.4 (37.0-47.0) % MCV 82.9 (80-100) fL MCH 26.8 L (27.0-34.0) pg MCHC 32.3 L (33.0-35.0) g/dL Plt Count 137 L D (150-450) 10^3/uL Neut % (Auto) 77.6 H (42.2-75.2) % Lymph % (Auto) 11.8 L (20.5-50.1) % [place] % (Auto) 10.0 H (2-8) % Eos % (Auto) 0.6 L (1.0-3.0) % Baso % (Auto) 0.0 (0.0-1.0) % Sodium 142 (135-145) mmol/L Potassium 3.3 L (3.6-5.0) mmol/L Chloride 108 (101-111) mmol/L Carbon Dioxide 23.0 (21.0-31.0) mmol/L Anion Gap 14.3 BUN 10 (7-18) mg/dL Creatinine 0.7 (0.6-1.3) mg/dL Est Cr Clr Drug Dosing 107.01 mL/min Estimated GFR (MDRD) > 60 BUN/Creatinine Ratio 14.28 Glucose 84 (74-105) mg/dL Calcium 8.8 (8.4-10.2) mg/dl Total Bilirubin 0.6 (0.2-1.0) mg/dL AST 18 (10-42) IU/L ALT 15 (10-60) IU/L Alkaline Phosphatase 61 (42-121) IU/L Total Protein 7.8 (6.7-8.2) g/dl Albumin 4.1 (3.2-5.5) g/dl Globulin 3.7 Albumin/Globulin Ratio 1.11 Urine Color (YELLOW) Urine Appearance (CLEAR) Urine pH (5.0-9.0) Ur Specific [place] (1.005-1.030) Urine Protein (NEGATIVE) Urine Glucose (UA) (NEGATIVE) Urine Ketones (NEGATIVE) Urine Occult Blood (NEGATIVE) Urine Nitrite (NEGATIVE) Urine Bilirubin (NEGATIVE) Urine Urobilinogen (0.2-1.0) mg/dL Ur Leukocyte Esterase (NEGATIVE) Urine HCG, Qual Negative 10/29/18 Range/Units 11:15 WBC (5.0-10.0) 10^3/uL RBC (4.2-5.4) 10^6/uL Hgb (12.0-16.0) g/dL Hct (37.0-47.0) % MCV (80-100) fL MCH (27.0-34.0) pg MCHC (33.0-35.0) g/dL Plt Count (150-450) 10^3/uL Neut % (Auto) (42.2-75.2) % Lymph % (Auto) (20.5-50.1) % [place] % (Auto) (2-8) % Eos % (Auto) (1.0-3.0) % Baso % (Auto) (0.0-1.0) % Sodium (135-145) mmol/L Potassium (3.6-5.0) mmol/L Chloride (101-111) mmol/L Carbon Dioxide (21.0-31.0) mmol/L Anion Gap BUN (7-18) mg/dL Creatinine (0.6-1.3) mg/dL Est Cr Clr Drug Dosing mL/min Estimated GFR (MDRD) BUN/Creatinine Ratio Glucose (74-105) mg/dL Calcium (8.4-10.2) mg/dl Total Bilirubin (0.2-1.0) mg/dL AST (10-42) IU/L ALT (10-60) IU/L Alkaline Phosphatase (42-121) IU/L Total Protein (6.7-8.2) g/dl Albumin (3.2-5.5) g/dl Globulin Albumin/Globulin Ratio Urine Color Yellow (YELLOW) Urine Appearance Clear (CLEAR) Urine pH 6.0 (5.0-9.0) Ur Specific [place] 1.025 (1.005-1.030) Urine Protein Negative (NEGATIVE) Urine Glucose (UA) Negative (NEGATIVE) Urine Ketones Negative (NEGATIVE) Urine Occult Blood Negative (NEGATIVE) Urine Nitrite Negative (NEGATIVE) Urine Bilirubin Negative (NEGATIVE) Urine Urobilinogen 0.2 (0.2-1.0) mg/dL Ur Leukocyte Esterase Negative (NEGATIVE) Urine HCG, Qual Rapid strep: Negative. Influenza A: Negative. Influenza B: Negative. Meds: Medications Generic Name Dose Route Start Last Admin Trade Name Freq PRN Reason Stop Dose Admin Lactated Ringer's 1,000 mls @ 999 mls/hr 10/29/18 11:52 10/29/18 12:16 Ringers, Lactated IV 10/29/18 12:52 999 mls/hr .BOLUS ONE Administration Sodium Chloride 10 ml 10/29/18 11:03 10/29/18 11:50 Saline Flush FLUSH 10 ml ASDIRECTED PRN Administration Keep Vein Open Discontinued Medications Generic Name Dose Route Start Last Admin Trade Name Kika PRN Reason Stop Dose Admin Diphenhydramine HCl 25 mg 10/29/18 11:52 10/29/18 12:17 Benadryl IVPUSH 10/29/18 11:53 25 mg ONETIME ONE Administration Ketorolac Tromethamine 30 mg 10/29/18 11:52 10/29/18 12:17 Toradol IVPUSH 10/29/18 11:53 30 mg ONETIME ONE Administration Lorazepam 1 mg 10/29/18 12:25 Ativan IVPUSH 10/29/18 12:26 ONETIME ONE Metoclopramide HCl 10 mg 10/29/18 11:52 10/29/18 12:17 Reglan IVPUSH 10/29/18 11:53 10 mg ONETIME ONE Administration - Radiology Interpretation Free Text/Narrative:: I saw and evaluated the patient. Discussed with resident and agree with resident s findings and plan as documented in the residents note. - Re-Assessments/Exams Free Text/Narrative Re-Assessment/Exam: 10/29/18 12:31 Patient became agitated while in CT. Head CT not completed. Patient crying and stating that she no longer wants to be here and she would like to leave. Attempted to talk the patient into staying. She refuses. She is made aware that she will have to sign out Against Medical Advice, and she is encouraged not to drive as she has had benadryl IV. 10/29/18 12:36 Departure - Departure Time of Disposition: 12:37 Disposition: Against Medical Advice 07 Condition: Fair Clinical Impression: Headache Qualifiers: Headache type: unspecified Headache chronicity pattern: acute headache Intractability: not intractable Qualified Code(s): R51 - Headache Fever Qualifiers: Fever type: unspecified Qualified Code(s): R50.9 - Fever, unspecified - Discharge Information *PRESCRIPTION DRUG MONITORING PROGRAM REVIEWED*: No *COPY OF PRESCRIPTION DRUG MONITORING REPORT IN PATIENT NICOLASA: No Forms: ED Department Discharge - My Orders Last 24 Hours: My Active Orders 10/29/18 11:03 Sodium Chloride 0.9% [Saline Flush] 10 ml FLUSH ASDIRECTED PRN Peripheral IV Insertion Adult [OM.PC] Routine 10/29/18 11:04 Peripheral IV Care [RC] . DIRECTED 10/29/18 11:06 CULTURE STREP A CONFIRMATION [RM] Stat STREP SCRN A RAPID W CULT CONF [RM] Stat 10/29/18 11:15 CULTURE BLOOD [BC] Stat CULTURE BLOOD [BC] Stat LACTIC ACID [CHEM] Stat Blood Culture x2 Reflex Set [OM.PC] Stat 10/29/18 11:52 Lactated Ringers [Ringers, Lactated] 1,000 ml IV .BOLUS 10/29/18 11:54 Head wo Cont [CT] Stat 10/29/18 12:25 DRUG SCREEN URINE BIORAD [URCHEM] Stat ETOH [ETHANOL BLOOD MEDICAL] [CHEM] Stat - Assessment/Plan Last 24 Hours: My Active Orders 10/29/18 11:03 Sodium Chloride 0.9% [Saline Flush] 10 ml FLUSH ASDIRECTED PRN Peripheral IV Insertion Adult [OM.PC] Routine 10/29/18 11:04 Peripheral IV Care [RC] . DIRECTED 10/29/18 11:06 CULTURE STREP A CONFIRMATION [RM] Stat STREP SCRN A RAPID W CULT CONF [RM] Stat 10/29/18 11:15 CULTURE BLOOD [BC] Stat CULTURE BLOOD [BC] Stat LACTIC ACID [CHEM] Stat Blood Culture x2 Reflex Set [OM.PC] Stat 10/29/18 11:52 Lactated Ringers [Ringers, Lactated] 1,000 ml IV .BOLUS 10/29/18 11:54 Head wo Cont [CT] Stat 10/29/18 12:25 DRUG SCREEN URINE BIORAD [URCHEM] Stat ETOH [ETHANOL BLOOD MEDICAL] [CHEM] Stat I have read and agree with the documentation that has been completed regarding this visit. By signing this record, I attest that the documentation was completed in my physical presence and is an accurate record of the encounter.
== END 2018-10-29 12:35 | disposition left against medical advice (07) ==
LOC: DL.ED 10:34
DX: R51 Headache (principal); R50.9 Fever, unspecified
CPT/HCPCS: 36415; 80053; 80305; 81003; 81025; 83605; 85025; 87040; 87081; 87430; 87804; 96374; 96375; 99284; G0480; J1200; J1885; J2765; J7120

== ENCOUNTER 2020-12-18 18:57 | Observation (INO) | payer MEDICAID ==
[2020-12-18] MEDS: Lactated Ringers 1,000 ML IV ONE ×2 (19:30→21:22)
[2020-12-18] MEDS ORDERED: Sodium Chloride 0.9% 10 ML Syringe FLUSH PRN (19:30)
[2020-12-18 20:03] LABS: ANION GAP 14.3 mEq/L (7-13); CHLORIDE,CL 107 mmol/L (98-107); SODIUM,NA 143 mmol/L (136-145)
[2020-12-18] MEDS ORDERED: NIFEdipine 10 MG Cap PO PRN (20:50)
[2020-12-18] MEDS: NIFEdipine 10 MG Cap PO ONE ×2 (21:05→22:33)
[2020-12-18] MEDS: fentaNYL 100 MCG/2 ML SDV IVPUSH ONE (21:16)
[2020-12-18] MEDS: NIFEdipine 10 MG Cap ONE (21:31)
[2020-12-18] MEDS: Acetaminophen 500 MG Tab PO ONE (22:07)
[2020-12-18] MEDS: metroNIDAZOLE 250 MG Tab PO ONE (22:08)
[2020-12-18] MEDS: NS + KCl 20mEq/L 1,000 ML IV SCH (22:37)
--- NOTE | 2020-12-18 22:41 | US ---
PROCEDURE INFORMATION: Exam: US , Transvaginal Exam date and time: 12/18/2020 9:13 PM Age: 25 years old Clinical indication: complicated by abdominal or pelvic pain; Generalized abdominal pain; Third trimester; Gestational age or lmp: 29+6; ; Additional info: contractions with pain TECHNIQUE: Imaging protocol: Real-time transvaginal obstetrical ultrasound of the maternal pelvis with image documentation. Transvaginal imaging was used for better evaluation of the fetus, adnexa, and/or cervix. COMPARISON: No relevant prior studies available. FINDINGS: Gestation: A single intrauterine gestation is present. presentation: Breech. heart rate: heart rate measures 140 beats/min. Placenta: Placenta is posterior fundal. No evidence for placenta previa. Amniotic fluid: Amniotic fluid appears subjectively within normal limits. MATERNAL: Cervix: Cervix is closed and measures 3.5 - 4.2 cm in length. IMPRESSION: Single living intrauterine gestation. Cervix is closed measuring greater than 3 cm length.
[2020-12-18] MEDS: Nitrofurantoin Monohydrate/Macrocrystalline 100 MG Cap PO ONE (23:07)
[2020-12-18] MEDS: hydrOXYzine HCl 25 MG Tab PO STA (23:08)
--- NOTE | 2020-12-19 01:36 | HP ---
OUTPATIENT DIAGNOSES: 1. Clinical dehydration, associated with dizziness and nausea. 2. G3, P1-0-1-1 at 29 weeks 6 days gestation based upon LMP on 05/23/2020. 3. Urinary tract infection in third trimester of . 4. Bacterial vaginosis in third trimester of . 5. Anemia during third trimester of , iron deficiency. 6. History of thrombocytopenia. 7. Pyridoxine deficiency, on vitamin B6 supplements. 8. Hypokalemia 9. Hypocalcemia 10. Depression 11. History of miscarriage, currently , third trimester. 12. Rubella nonimmune status, antepartum. 13.History of section. 14.Request for sterilization. 15. Significant social stressors HISTORY OF PRESENT ILLNESS/CHIEF COMPLAINT: Lori Caba is a 25-year-old G3, P1-0-1-1 female at 29 weeks 6 days gestation based upon last menstrual period on 05/23/2020, who presents with symptoms of dizziness, nausea, vomiting, and shakiness. She states that she was seen in clinic on Wednesday and was diagnosed with a urinary tract infection and was prescribed Macrobid. Her first dose of Macrobid was around noon today and she took it with food. She reports that she started to feel dizzy around 1:30 and after spending a couple of hours outside, she began to feel nauseated and subsequently vomited. She also reports that she drink approximately 6 ounces of water in total today. For breakfast she had frosted wheaties and for lunch she ate corn dogs. She was not able to eat supper. She has had nausea throughout the and has been prescribed Reglan, but she did not take it today. She also reports generalized lower abdominal pain rated a 5/10. She denies any fevers, chills, headache, chest pain, shortness of breath, diarrhea, constipation, dysuria, hematuria, or vaginal discharge. She also reports significant life stressors. FOB is in [facility]. OBSTETRIC HISTORY: G3, P1-0-1-1. 1. Spontaneous at 10 weeks 2 days gestation, 06/05/2016. 2. Term delivery at 37 weeks 0 days gestation, female , 5 pounds 10 ounces, 05/25/2017. Primary low-transverse section due to intolerance and failure to progress in first stage of labor. 3. Current at 29 weeks 6 days gestation. GYNECOLOGICAL HISTORY: History of HSV-1. Denies any current active lesions. LABS: 1. Blood group type is A positive with negative antibody screen. 2. Serology (RPR/syphilis) is nonreactive on 06/21/2020 and 12/02/2020. 3. Rubella immune. 4. Hepatitis B surface antigen nonreactive. 5. Hepatitis C antibody nonreactive. 6. HIV negative. 7. Gonorrhea and chlamydia not detected. 8. GBS has not been collected. PAST MEDICAL HISTORY: 1. See additional diagnoses as listed above. 2. Migraine. 3. Venous congestion. 4. Marijuana abuse. 5. Tattoo on right forearm. PAST SURGICAL HISTORY: 1. Blepharoplasty on right when she was 9 years old. 2. section, low transverse, 05/25/2017. PRIOR TO ADMISSION MEDICATIONS: 1. Ferrous sulfate 325 mg b.i.d. 2. Hydroxyzine 25 mg p.r.n. at night. 3. Fluoxetine 20 mg daily. 4. Metoclopramide 10 mg p.r.n. 5. Macrobid 100 mg started on 12/18/2020. ALLERGIES: Patient reports no known allergies. SOCIAL HISTORY: Denies tobacco, alcohol, drug use during . 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 She lives with her daughter in [place]. Father of her first child is very supportive. FOB of current is currently in [place] in [facility]. FAMILY HISTORY: Negative family history of defects, multiple births, anesthesia problems, bleeding problems, clotting disorders, cystic fibrosis, or seizures. REVIEW OF SYSTEMS: General: Reports fatigue. Respiratory: Denies difficulty breathing, cough. Cardiovascular: Denies chest pain. GI: Reports abdominal pain spanning her lower quadrant, which has been constant today, more prominent on left. Denies diarrhea or constipation. Positive for nausea and vomiting. : Denies vaginal discharge or malodorous discharge. Denies dysuria or hematuria. PHYSICAL EXAMINATION: Vital Signs: T 98.1 F, BP 110/73, P 96, respirating on room air. General Appearance: Alert, well appearing, no apparent distress. Lungs: Clear to auscultation. No wheezes. Symmetric air entry. Heart: Regular rate and rhythm, no murmurs noted. Abdomen: Nontender to palpation. FHT: Category 1, baseline at 130s with moderate variability, accelerations present, decelerations absent. [place]: Uterine irritability with contractions occurring 1-3 min Pelvic: Wet prep and GC and chlamydia swabs were collected, vaginal canal appears red with white clumpy discharge. Cervix appeared closed. Digital Pelvic: 1 cm dilated, bag intact Extremities: Mild edema in the calves bilaterally. Skin: Normal coloration and turgor, no rashes. LABORATORY DATA: CBC: WBC 8.9, RBC 3.58, HGB 9.1, HCT 29.4, platelet count 184. BMP: Sodium 143, potassium 3.3, chloride 107, bicarb 25, anion gap 14.3, BUN 10, creatinine 0.66, glucose 78, calcium 7.8. Urinalysis: Urine specific gravity greater than 1.030, protein 30, glucose negative, ketones 15, occult blood negative, nitrites negative, leukocyte esterase trace, rbc's 0 to 5, wbc's 75 to 100, epithelial cells many, urine bacteria few, urine mucus rare, rare clue cells seen. Wet prep: Yeast none seen, Trichomonas none seen, clue cells rare, wbc's many. ASSESSMENT AND PLAN: Lori Caba is a G3, P1-0-1-1 at 29 weeks 6 days gestation, being evaluated as an outpatient for symptoms consistent with dehydration 1. Bolused 2 L of LR fluid. Provided patient education on adequate hydration and discussed appropriate amount of water and fluids to drink throughout the day during . 2. For urinary tract infection, will continue the Macrobid antibiotic. Take the medicine with food. 3. For the bacterial vaginosis, will consider dose of Flagyl 4. For uterine irritability and contractions gave nifedipine 10 mg p.o. for tocolysis. 5. We will order a fibronectin. 6. May use Tylenol Extra Strength 100 mg p.o. for pain management. 7. Will continue to monitor overnight as outpatient and will recheck cervix in the morning to monitor for change 8. Will order an ultrasound to assess FRANCHESCA and cervical length WILLAM Avelar MODL /[id number] MTDD
[2020-12-19 04:36] VITALS: BP 95/50
[2020-12-19] MEDS: NIFEdipine 10 MG Cap PO SCH (04:36)
[2020-12-19 05:11] VITALS: PULSE 78
--- NOTE | 2020-12-19 11:43 | DISCH ---
DISCHARGE DIAGNOSES: 1. Clinical dehydration associated with dizziness and nausea: Resolved. 2. G3, P1-0-1-1 at 29 weeks' 6 days' gestation based upon last menstrual period on 05/23/2020. 3. Urinary tract infection in third trimester . 4. Bacterial vaginosis in third trimester . 5. Anemia during third trimester , iron deficiency. 6. History of thrombocytopenia. 7. Pyridoxine deficiency, on vitamin B6 supplements. 8. Hypokalemia. 9. Hypocalcemia. 10.Depression. 11.History of miscarriage, currently , third trimester. 12.Rubella nonimmune status, antepartum. 13.History of section. 14.Request for sterilization. 15.Significant social stressors. PROCEDURES PERFORMED: None. BRIEF HISTORY: A 25-year-old female with the above-listed diagnoses, presented to Labor and Delivery with feelings of dizziness, nausea, vomiting, and shakiness. She was recently diagnosed with a urinary tract infection and was prescribed Macrobid. She has drank minimal fluids and has a low nutrition diet. She reported generalized lower abdominal pain rated at 5/10. After receiving 2 L LR fluid boluses, she started to feel increased contractions that were increasing in intensity and frequency. It was determined at this time to admit for observation overnight and to do a workup including labs and ultrasound. HOSPITAL COURSE: She received 2 L LR fluid boluses for her dehydration and was started on a maintenance fluid of normal saline plus KCl 20 mEq at 25 mL/hr. For uterine irritability and contraction, she was given fentanyl 50 mcg and hydroxyzine 25 mg and Tylenol 1000 mg. For tocolysis, she was given nifedipine 30 mg p.o. followed by 20 mg every 6 hours. She continued her Macrobid 100 mg p.o. for UTI. She was also diagnosed with bacterial vaginosis and was given oral dose of metronidazole 500 mg. During hospital course, cervical exam remained unchanged. Her uterine irritability improved during her stay and contraction tapered. Ultrasound revealed cervical length was adequate and closed measuring 3.5 to 4.2 cm in length. Amniotic fluid was subjectively within normal limits. It was determined that steroids and magnesium were not indicated at this time. FFN was negative, which was reassuring that she was not in labor. It was also determined that she had significant social life stressors occurring in her life. She is currently taking fluoxetine 20 mg daily, and it was discussed at length whether or not to increase this dose. She decided to remain at her current dose, and she would contact the clinic if she wanted to increase her dose. DISCHARGE CONDITION: Good. PHYSICAL EXAMINATION: Vital Signs: T 97.6 F, P 78, BP 95/50, RR 16. General: Alert. No acute distress. Heart: Regular rate and rhythm without murmur noted. Lungs: CTA bilaterally with good chest expansion. Abdomen: Gravid abdomen. Nontender. Extremities: Bilateral pitting edema present, nonconcerning. LABORATORY DATA: CBC: WBC 8.9, RBC 3.58, HGB 9.1, HCT 29.4, platelet count 184. BMP: Sodium 143, potassium 3.3, chloride 107, bicarb 25, anion gap 14.3, BUN 10, creatinine 0.66, calcium 7.8. UA: Urine specific gravity greater than 1.030, protein 30, glucose negative, ketones 15, occult blood negative, nitrites negative, bilirubin negative, leukocyte esterase trace, rbc 0-5, wbc 75-100, epithelial cells many, bacteria few, rare clue cells. SARS-CoV-2 RNA negative. fibronectin negative. Wet prep: Yeast none seen, Trichomonas none seen, clue cells rare, wbc's many. IMAGING: Transvaginal ultrasound. A single intrauterine gestation is present, presentation is breech. heart rate measured 140 beats per minute. Placenta is posterior fundal. No evidence of placenta previa. Amniotic fluid within normal limits. Cervix closed measuring greater than 3 cm in length. DISPOSITION: Home. MEDICATIONS: Continue at home medications. Ferrous sulfate 325 mg b.i.d., hydroxyzine 25 mg p.r.n. at night, fluoxetine 20 mg daily, metoclopramide 10 mg p.r.n., Macrobid 100 mg b.i.d. for urinary tract infection. We will also prescribe metronidazole cream to use for 5 nights total for BV. FOLLOWUP: Follow up for routine OB visit with Dr. Marshall. If wanting to discuss mood, may consider scheduling an appointment earlier or sending clinic my chart message. Please follow up sooner if needed. INSTRUCTIONS: Discussed at length and provided patient education on appropriate fluid hydration and nutrition. Discussed at length her social situation. Continue all other recommendations. [facility] /[id number]
[2020-12-20 14:46] LABS: C.TRACHOMATIS BY TMA Positive (Negative); N.GONORRHOEAE BY TMA Negative (Negative)
== END 2020-12-19 07:45 | disposition home or self-care (01) ==
LOC: DL.OBCHECK 18:57 → DL.OB 22:37
PROVIDERS: ADMIT Family Medicine; ATTEND Family Medicine
DX: O21.2 Late vomiting of pregnancy (principal); O23.43 Unspecified infection of urinary tract in pregnancy, third trimester; O23.593 Infection of other part of genital tract in pregnancy, third trimester; O34.219 Maternal care for unspecified type scar from previous cesarean delivery; O99.013 Anemia complicating pregnancy, third trimester; E87.6 Hypokalemia; E83.51 Hypocalcemia; D50.9 Iron deficiency anemia, unspecified; E53.1 Pyridoxine deficiency; F32.9 Major depressive disorder, single episode, unspecified; Z3A.29 29 weeks gestation of pregnancy; Z20.822 Contact with and (suspected) exposure to COVID-19
CPT/HCPCS: 36415; 76815; 76817; 80048; 81001; 82731; 85025; 86592; 87210; 87491; 87591; 96374; A9270-GY; G0378; J3010; J3480; J7120; U0002

== ENCOUNTER 2021-02-15 04:04 | Inpatient (IN) | payer MEDICAID ==
[2021-02-15] MEDS ORDERED: Lactated Ringers 1,000 ML IV SCH ×3 (05:00→06:30)
[2021-02-15 05:02] LABS: AMPHETAMINES,URINE NEGATIVE (NEGATIVE); BARBITURATES,URINE NEGATIVE (NEGATIVE); BENZODIAZEPINE,URINE NEGATIVE (NEGATIVE); MDMA (ECSTASY), URINE NEGATIVE (NEGATIVE); METHADONE,URINE NEGATIVE (NEGATIVE); METHAMPHETAMINES,URINE NEGATIVE (NEGATIVE); OPIATES,URINE NEGATIVE (NEGATIVE); OXYCODONE,URINE NEGATIVE (NEGATIVE); PHENCYCLIDINE,URINE NEGATIVE (NEGATIVE); TCA,URINE NEGATIVE (NEGATIVE)
[2021-02-15] MEDS ORDERED: Sodium Chloride 0.9% 10 ML Syringe FLUSH PRN (06:26)
[2021-02-15] MEDS ORDERED: Tranexamic Acid 1,000 MG in Sodium Chloride 0.9% 100 ML IV PRN ×2 (06:26→11:07)
[2021-02-15] MEDS ORDERED: ceFAZolin 2 GM in Premix Bag 1 BAG IV ONE (06:26)
[2021-02-15] MEDS ORDERED: Citric Acid/Sodium Citrate Solution 30 ML Cup PO ONE ×2 (06:26→06:37)
[2021-02-15] MEDS ORDERED: Oxytocin/Normal Saline 30 UNIT/500 ML BAG IV SCH (06:30)
[2021-02-15] MEDS ORDERED: Oxytocin/Normal Saline 60 UNIT/1,000 ML BAG ONE (07:12)
--- NOTE | 2021-02-15 07:17 | HP ---
HISTORY OF PRESENT ILLNESS: The patient is a 25-year-old 3, para 1-0-1- 1 female at 38 weeks' 2 days' gestation, A positive, rubella immune. The patient is presenting to labor triage with concerns of increasing intensity and frequency of contractions. She states that she was seen in clinic on 02/13/2021, and at that time her cervix was checked and noted to be 1 cm, 50%, - 3. Since that time, she has noted intermittent back pain and cramping. She said this has progressed throughout the day yesterday and this morning became more intense. She then was up around 4 a.m. and noticed what she believed to be leakage of fluid. At that time, she decided to present to Labor and Delivery for further evaluation. She also states that she has been struggling with anxiety and has a mild headache. The patient denies any visual changes, any peripheral edema, or swelling. The patient does note that with her contractions, she has to stop and breathe through them. She endorses active movement. Records were reviewed and pertinent positives as below. OB MATERNAL HISTORY: The patient is a 3, para 1-0-1-1. She does have a history of x1 back in 2017 due to failure to progress with intolerance and nonreassuring heart tones during labor. The patient also has a history of contractions with this current and was given betamethasone x1 earlier in . She also has significant history of chlamydia infection in second trimester, history of anemia in third trimester, recurrent and recent UTIs, recently treated and cured. She does have a history of thrombocytopenia in . ALLERGIES: No known allergies. MEDICATIONS: The patient states she takes hydroxyzine for anxiety, Prozac, iron, vitamin B6, vitamin C, vitamin. PAST MEDICAL HISTORY: The patient's past medical history is positive for pyelonephritis, miscarriage, thrombocytopenia, migraines, HSV-1 infection, anxiety, depression. PAST SURGICAL HISTORY: 1. Blepharoplasty on right as a child. 2. section, low transverse. FAMILY HISTORY: The patient's family history is positive for maternal grandmother with throat cancer, a sister with depression, mother with gestational diabetes, maternal grandfather with type 2 diabetes, paternal grandfather with heart disease, and father with hypertension. SOCIAL HISTORY: The patient lives in [facility]. 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 Father of the baby is Jose Jesus, who is currently incarcerated. REVIEW OF SYSTEMS: Review of systems is positive for mild headache. Otherwise, review of systems is negative. OBJECTIVE: Vital Signs: Blood pressure 123/72, temp 97.4, heart rate 115 bpm. Appearance: Comfortable, lying in bed in mild distress with contractions. HEENT: Within normal limits. Lungs: Clear to auscultation bilaterally. No increased work of breathing. Heart: Regular rate and rhythm. No murmurs noted. Abdomen: Gravid uterus. Palpated 19 cm above umbilicus. Genitourinary: Normal external female genitalia. Pelvic: Cervix is noted to be 1 cm dilated, 50% effaced, -3 station. Extremities: No peripheral edema. No clonus noted on exam. Skin: No cyanosis, clubbing, or jaundice. NST: heart rate baseline 120 bpm, moderate variability with accelerations. No decelerations noted. [place]: Contractions noted every 2 to 4 minutes. Interpretation: Category 1 strip, reactive NST. ASSESSMENT: 1. 25-year-old 3, para 1-0-0-1 presenting at 38 weeks 2 days' gestation. 2. Intrauterine contractions increased in intensity and frequency. 3. A positive, rubella immune. 4. History of section, requesting repeat low transverse section. 5. History of contractions with betamethasone given during current . PLAN: 1. We will start IV and give 1 L of fluids. 2. We will monitor for increased intensity and frequency of contractions and progression of labor. 3. AmniSure collected, negative. 4. We will continue current monitoring. Did discuss with the patient the likelihood of progressing and going for delivery based on the patient's term status. The patient was seen and evaluated by myself under advisement of Dr. Castro. [facility] /[id number]
[2021-02-15] MEDS ORDERED: Dexamethasone 4 MG/ML SDV IV ONE (07:45)
[2021-02-15] MEDS ORDERED: ePHEDrine 50 MG/ML SDV IV ONE (07:45)
[2021-02-15] MEDS ORDERED: Ondansetron 4 MG/2 ML SDV IV ONE (07:45)
[2021-02-15] MEDS ORDERED: Sodium Bicarbonate 4.2% 2.5 MEQ/5 ML SDV ONE (07:45)
[2021-02-15] MEDS ORDERED: diphenhydrAMINE 50 MG/ML SDV IV ONE (07:45)
[2021-02-15] MEDS ORDERED: Morphine PF 10 MG/10 ML SDV ONE (07:45)
[2021-02-15] MEDS ORDERED: Ketorolac 30 MG/ML SDV IVPUSH ONE (07:45)
[2021-02-15] MEDS ORDERED: Carboprost Tromethamine 250 MCG/1 ML Amp IM PRN (11:07)
[2021-02-15] MEDS ORDERED: diphenhydrAMINE 50 MG/ML SDV IVPUSH PRN (11:07)
[2021-02-15] MEDS ORDERED: Misoprostol 400 MCG (4 X 100 MCG TAB) RECTAL PRN (11:07)
[2021-02-15] MEDS ORDERED: Ondansetron 4 MG/2 ML SDV IVPUSH PRN (11:07)
[2021-02-15] MEDS ORDERED: Naloxone 2 MG/2 ML Syringe IVPUSH PRN (11:07)
[2021-02-15] MEDS ORDERED: ePHEDrine 50 MG/ML SDV IVPUSH PRN (11:07)
[2021-02-15] MEDS ORDERED: oxyCODONE 5 MG Tab PO PRN (11:07)
[2021-02-15] MEDS ORDERED: Methylergonovine 0.2 MG/1 ML Amp IM PRN (11:07)
[2021-02-15] MEDS: Lactated Ringers 1,000 ML IV SCH ×2 (13:05→18:23)
[2021-02-15] MEDS: Acetaminophen 325 MG Tab PO SCH ×3 (13:10→22:08)
[2021-02-15] MEDS: Simethicone 80 MG Tab.Chew PO SCH ×4 (13:11→21:08)
[2021-02-15] MEDS: Prenatal Multivitamin with Calcium/Folic Acid/Iron Tab PO SCH (13:15)
[2021-02-15] MEDS: Ketorolac 30 MG/ML SDV IVPUSH SCH ×2 (15:41→21:09)
--- NOTE | 2021-02-15 19:25 | OR ---
DATE: 02/15/2021 ASSISTANTS: Jordan Franco MD and ALTHEA Finnegan, PGY-2. PREPROCEDURE DIAGNOSES: 1. Intrauterine at 38 weeks and 2 days gestation. 2. History of delivery, declines trial of labor. 3. History of Chlamydia infection affecting . 4. History of cystitis in . 5. Anemia in , preoperative hemoglobin of 8.4. 6. History of herpes genitalis infection. 7. History of gestational thrombocytopenia. POSTPROCEDURE DIAGNOSIS: Status post repeat low transverse section. PROCEDURE: Repeat low transverse section via Pfannenstiel infection. FINDINGS: Clear amniotic fluid, viable male infant weighing 3445 g, delivered from cephalic presentation with scores of 9 and 9 at one and five minutes respectively. Infant named Gigi. ANESTHESIA: Spinal. COMPLICATIONS: None. FLUIDS: 1300 mL of crystalloid. DRAINS: Arteaga catheter with 150 mL of clear yellow urine. ESTIMATED BLOOD LOSS: 500 mL. SPECIMEN: Placenta. INDICATIONS: Lori Caba is a 25-year-old G3, P1-0-1-1 woman who presented with spontaneous regular painful uterine contractions in setting of prior history of delivery. She declines trial of labor. She had also previously signed federal sterilization consent but declined permanent sterilization or transfer for the same procedure. See preoperative documentation for details. PROCEDURE IN DETAIL: The patient was taken to the operating room where spinal anesthesia was placed without difficulty and was found to be adequate. She was placed in dorsal supine position with a left lateral tilt. She was prepped and draped with an antiseptic solution in usual sterile fashion. She received 2 g of IV cefazolin for infection prophylaxis, 2 units of untyped O-negative blood were called to the OR in case of hemorrhage due to low hemoglobin but ultimately were not given. Surgical time-out was performed. All parties were in agreement to proceed. A Pfannenstiel skin incision was made with scalpel through her prior scar and carried down to the underlying fascia. Fascia was nicked in the midline, extended bilaterally bluntly. The rectus muscles were bluntly, and the peritoneum was entered bluntly and gently stretched. The bladder was visualized and felt to be well below the field. The Walter self- retaining retractor was placed. No bladder flap was created. The lower uterine segment was incised in a transverse fashion with a scalpel and extended with bilateral upward tension. Clear fluid was noted. The was noted to be in cephalic presentation. Gentle pressure was used to elevate the infant's head to the hysterotomy with attention paid to not using the hysterotomy as a fulcrum. Gentle fundal pressure was performed to facilitate delivery of the infant's head followed by delivery of the shoulders and body without difficulty. Delayed cord clamping of 1 minute was performed after which the cord was clamped and cut. The cord was notable for a true knot. The was handed off to the awaiting nursery staff with scores marked of 9 and 9 and a weight as above. Cord blood was taken. Cord segment was taken as well but gases were ultimately not ordered. The placenta was expressed intact with 3-vessel cord noted. Uterus became firm with massage and IV oxytocin and was exteriorized and cleared off all clots and debris. The hysterotomy was inspected. No extensions were noted and was then repaired primarily with running locked 0 Vicryl suture followed by several additional sutures to obtain hemostasis, which was noted. Both tubes and ovaries were visualized and noted to be normal. The paracolic gutters were wiped with sponge, and uterus was returned to the abdomen. The uterine incision was reexamined and noted to be hemostatic. The Walter retractor was removed. The fascia was then closed with running 0 Vicryl suture. The subcutaneous layer was not approximated, and the skin was closed with subcuticular 3-0 Monocryl suture. Sponge, needle, and instrument counts were reported as correct x2. The patient tolerated the procedure well and was subsequently transferred back to the recovery room in stable condition. [facility] /[id number]
[2021-02-15] MEDS: Docusate Sodium 100 MG Cap PO PRN (21:08)
[2021-02-15] MEDS ORDERED: Melatonin 3 MG Tab PO PRN (21:27)
[2021-02-16] MEDS: Ketorolac 30 MG/ML SDV IVPUSH SCH (02:39)
[2021-02-16] MEDS: Acetaminophen 325 MG Tab PO SCH ×3 (05:56→18:18)
[2021-02-16] MEDS: Ibuprofen 800 MG Tab PO SCH ×2 (10:04→18:20)
[2021-02-16] MEDS: Simethicone 80 MG Tab.Chew PO SCH ×4 (10:05→21:35)
[2021-02-16] MEDS: Prenatal Multivitamin with Calcium/Folic Acid/Iron Tab PO SCH (10:05)
--- NOTE | 2021-02-16 14:43 | PN ---
DATE: 02/16/2021 SUBJECTIVE: The patient is postop day 1, status post repeat low-transverse section at 38 weeks 2 days' gestation. The patient states that overnight she has done well. She was up and ambulating to the bathroom x1 overnight. She did report with trying to advance diet. She became nauseous and threw up one time. She subsequently tried again later on and was able to tolerate p.o. intake. After the procedure, the patient was noted to have decreased urine output. So, a 500 mL bolus was given of lactated Ringer's with resolution of urine output. The patient has had adequate urine output since that time. She reports mild pain managed with scheduled pain medications. The patient states her pain is moderately controlled with little pain medication. She endorses mild bleeding and cramping. She is and states it is going well. She did endorse difficulty sleeping overnight, but was able to sleep after a dose of melatonin. She denies associated symptoms of fever, chills, dizziness, lightheadedness, palpitations, continued nausea and vomiting, lower extremity pain or swelling. OBJECTIVE: Vital Signs: Temperature 97.3, HR 80 bpm, BP 93/59, respiratory rate 14 breaths per minute, and oxygen saturation 98% on room air. Appearance: Lying in bed, sleeping comfortably, in no acute distress. HEENT: Within normal limits. Heart: Regular rate and rhythm. No murmurs noted. Lungs: Clear to auscultation bilaterally. Abdomen: Soft, mildly distended, firm uterus palpated 2 cm below umbilicus. Incision: Clean, dry, and intact with dressing in place. Extremities: Compression stockings in place. Trace pedal edema noted. No calf pain or tenderness to palpation. Skin: Slightly pale-appearing. No rash or bruising noted. LABORATORY DATA: CBC: WBC 10.5, RBC 3.02, hemoglobin 6.9 down from 8.7 on admission, hematocrit 23.1 down from 28.9 on admission, platelets 124 down from 156 on admission. ASSESSMENT: 1. A 25-year-old, 3, para 1-0-0-1, now 2-0-0-2 presenting at 38 weeks 2 days' gestation. Postop day #1 status post repeat low-transverse section. 2. A-positive, rubella immune. 3. Acute blood loss anemia postprocedure. PLAN: 1. Discussed with patient risks and benefits of receiving a blood transfusion for acute blood loss anemia. The patient is agreeable to proceed with blood transfusion. We will start transfusion of 2 units packed red blood cells typed and crossed. 2. We will continue to monitor clinically and closely. 3. We will repeat hemoglobin 2 hours post transfusion. 4. Continue routine cares. The patient seen and evaluated today by myself and Dr. Toby Castro. Assessment and plan is under advisement of Dr. Castro. [facility] /[id number]
[2021-02-16] MEDS: Docusate Sodium 100 MG Cap PO PRN (18:19)
[2021-02-17] MEDS: Acetaminophen 325 MG Tab PO SCH ×3 (01:17→07:46)
[2021-02-17] MEDS: Ibuprofen 800 MG Tab PO SCH ×2 (02:02→10:11)
[2021-02-17 07:15] VITALS: BP 106/59; PULSE 72
[2021-02-17] MEDS: Simethicone 80 MG Tab.Chew PO SCH (09:19)
[2021-02-17] MEDS: Docusate Sodium 100 MG Cap PO PRN (09:19)
[2021-02-17] MEDS: Prenatal Multivitamin with Calcium/Folic Acid/Iron Tab PO SCH (09:19)
[2021-02-17] MEDS ORDERED: Oxytocin/Normal Saline 30 UNIT/500 ML BAG IV ONE (10:35)
--- NOTE | 2021-02-18 00:51 | DISCH ---
ADMITTING DIAGNOSES: 1. Intrauterine at 38 weeks 2 days' gestation. 2. History of delivery, declines trial of labor. 3. History of Chlamydia infection affecting . 4. History of cystitis in . 5. Anemia in , preoperative hemoglobin of 8.4. 6. History of herpes genitalis infection. 7. History of gestational thrombocytopenia. DISCHARGE DIAGNOSES: 1. Intrauterine at 38 weeks 2 days' gestation. 2. History of delivery, declines trial of labor. 3. History of Chlamydia infection affecting . 4. History of cystitis in . 5. Anemia in , preoperative hemoglobin of 8.4. 6. History of herpes genitalis infection. 7. History of gestational thrombocytopenia. 8. Status post repeat low transverse section at 38 weeks 2 days' gestation on 02/15/2021. 9. Acute blood loss anemia, status post 2 units PRBC. Discharge hemoglobin 9.3. 10. depression. PROCEDURES PERFORMED: 1. NST at triage. 2. IV fluid rehydration. 3. Repeat low-transverse section with delivery of term male . HISTORY OF PRESENT ILLNESS: Please see H and P for further details. The patient is a 25-year-old, 3, para 1-0-1-1 female who presented to OB triage at 38 weeks 2 days' gestation with complaints of increasing intensity and frequency of contractions. The patient was monitored in OB triage and was noted to show signs of early labor. The patient was offered trial of labor, but declined. The patient requested repeat low-transverse section, which was then completed. Please see operative note for further details of . SUMMARY OF HOSPITAL COURSE: The patient was admitted on the above date with the above diagnoses and underwent said procedures. The patient delivered a term male with scores of 9 and 9 at one and five minutes respectively, weighing 3445 g via repeat low-transverse section. The patient's immediate postoperative course was uncomplicated. Postoperative day #1: The patient was noted to have acute blood loss anemia. On postoperative day #1, the patient was amendable to receiving 2 units of packed red blood cells with improvement in hemoglobin levels. The patient did endorse feeling slight improvement in energy and overall feelings. She continued to recuperate from the procedure. Arteaga catheter was removed and dressing was removed to encourage ambulation and routine healing. Postoperative day #2, date of discharge: The patient has tolerated p.o. intake overnight. She has been up and ambulating, urinating, and passing flatus appropriately. She feels pain is controlled at this time. She is with formula supplementation. She does endorse quite intense depression. Patient has a history of depression and was on antidepressants prior to , but due to concerns of how it would affect baby, patient had not been taking it recently. DISCHARGE PHYSICAL EXAMINATION: Vital Signs: Temp 97.9, HR 72 bpm, BP 106/59, RR 18 breaths per minute. The patient does note that she does have blood pressures that are chronically low. Appearance: Normal appearing, no acute distress. Sitting in bed. Lungs: Clear to auscultation bilaterally. Heart: Regular rate and rhythm. No murmurs noted. Abdomen: Soft, mildly distended. Firm uterus palpated 2 cm below umbilicus. Extremities: Trace pedal edema noted bilaterally. No calf pain or tenderness with palpation. LABORATORY DATA: Postop day #1, hemoglobin was noted to drop from 8.7 preprocedural to 6.9 postprocedural. After 2 units of packed red blood cells, patient's hemoglobin did respond and increase to 9.3. DISCHARGE DISPOSITION: Good. DISCHARGE INSTRUCTIONS: Diet as tolerated. Activity: No lifting more than 20 pounds. No sit-ups or straining. Pelvic rest for 6 weeks with immediate return to discuss fertility. Reasons to return or go to emergency room discussed with patient including change in temperature greater than 100.4 degrees Fahrenheit; foul-smelling discharge; red, hot, tender breasts; increased vaginal bleeding or pain; redness or swelling around incision or opening of incision. DISCHARGE MEDICATIONS: 1. Extra-strength OTC Tylenol q.8 hours. 2. Ibuprofen q.8 hours for pain and inflammation prevention. 3. Oxycodone 10 mg, as needed for postoperative pain. 4. vitamin. 5. Iron. 6. Zoloft 50 mg daily. Followup on Wednesday with Dr. Marshall for an incision check and discussion regarding depression. Questions were answered and the patient is in agreement with this plan. The patient was seen and evaluated today by myself and Dr. Doc Castro. Assessment and plan is under advisement of Dr. Castro. [facility] /[id number]
== END 2021-02-17 12:20 | disposition home or self-care (01) | DRG 787 ==
LOC: DL.OBCHECK 04:04 → DL.OB 06:26 → OBSVTOIN 07:58 → DL.OB 07:58
PROVIDERS: ADMIT Family Medicine; ATTEND Family Medicine
PROC: 10D00Z1 Extraction of Products of Conception, Low, Open Approach (ICD-10-PCS; principal; 2021-02-15)
PROC: 30233N1 Transfusion of Nonautologous Red Blood Cells into Peripheral Vein, Percutaneous Approach (ICD-10-PCS; 2021-02-16)
DX: O34.211 Maternal care for low transverse scar from previous cesarean delivery (principal); D62 Acute posthemorrhagic anemia; O98.32 Other infections with a predominantly sexual mode of transmission complicating childbirth; O99.02 Anemia complicating childbirth; Z20.822 Contact with and (suspected) exposure to COVID-19; A60.09 Herpesviral infection of other urogenital tract; O99.345 Other mental disorders complicating the puerperium; F53.0 Postpartum depression; Z3A.38 38 weeks gestation of pregnancy; Z37.0 Single live birth
CPT/HCPCS: 01961; 36415; 36430; 59020; 80305-QW; 81003; 84112; 85027; 86850; 86900; 86901; 86920; 86922; A9270-GY; J0690; J1100; J1200; J1885; J2270; J2405; J2590; J7120; P9016; U0002

== ENCOUNTER 2022-03-08 15:31 | Inpatient (IN) | payer MEDICAID ==
[2022-03-08] MEDS ORDERED: Ondansetron 4 MG in Sodium Chloride 0.9% 50 ML IV ONE (16:26)
[2022-03-08] MEDS ORDERED: Lactated Ringers 500 ML IV ONE (16:26)
[2022-03-08] MEDS ORDERED: Naloxone 2 MG/2 ML Syringe IVPUSH PRN (17:38)
[2022-03-08] MEDS ORDERED: Carboprost Tromethamine 250 MCG/1 ML Amp IM PRN (17:38)
[2022-03-08] MEDS ORDERED: Methylergonovine 0.2 MG/1 ML Amp IM PRN (17:38)
[2022-03-08] MEDS ORDERED: Tranexamic Acid 1,000 MG in Sodium Chloride 0.9% 100 ML IV PRN (17:38)
[2022-03-08] MEDS ORDERED: diphenhydrAMINE 50 MG/ML SDV IVPUSH PRN (17:38)
[2022-03-08] MEDS ORDERED: ceFAZolin 2 GM in Premix Bag 1 BAG IV ONE (17:38)
[2022-03-08] MEDS ORDERED: Acetaminophen 325 MG Tab PO PRN (17:38)
[2022-03-08] MEDS ORDERED: Acetaminophen/oxyCODONE 325-5 MG Tab PO PRN (17:38)
[2022-03-08] MEDS ORDERED: ePHEDrine 50 MG/ML SDV IVPUSH PRN (17:38)
[2022-03-08] MEDS ORDERED: Ondansetron 4 MG/2 ML SDV IVPUSH PRN (17:38)
[2022-03-08] MEDS ORDERED: Misoprostol 400 MCG (4 X 100 MCG TAB) RECTAL PRN (17:38)
[2022-03-08] MEDS ORDERED: Citric Acid/Sodium Citrate Solution 30 ML Cup PO ONE (17:38)
[2022-03-08] MEDS ORDERED: Dexamethasone 4 MG/ML SDV IV ONE (18:00)
[2022-03-08] MEDS ORDERED: Oxytocin/Normal Saline 30 UNIT/500 ML BAG IV ONE (18:00)
[2022-03-08] MEDS ORDERED: Morphine PF 1 MG/ML Amp ONE (18:00)
[2022-03-08] MEDS ORDERED: fentaNYL 100 MCG/2 ML SDV ONE (18:00)
[2022-03-08] MEDS ORDERED: Ondansetron 4 MG/2 ML SDV IV ONE (18:00)
[2022-03-08] MEDS ORDERED: Midazolam 1 MG/ML 2 ML SDV IV ONE (18:00)
[2022-03-08] MEDS ORDERED: Ketorolac 30 MG/ML SDV IVPUSH ONE (18:00)
[2022-03-08] MEDS ORDERED: Sodium Chloride 0.9% 1,000 ML IV ONE (18:00)
[2022-03-08] MEDS ORDERED: Sodium Chloride 0.9% 10 ML Syringe IV ONE (18:00)
[2022-03-08] MEDS ORDERED: Oxytocin/Normal Saline 60 UNIT/1,000 ML BAG ONE (18:15)
[2022-03-08] MEDS ORDERED: Oxytocin/Normal Saline 30 UNIT/500 ML BAG IV SCH (19:00)
[2022-03-08 21:39] LABS: METHAMPHETAMINES,URINE NEGATIVE (NEGATIVE)
[2022-03-08 21:40] LABS: AMPHETAMINES,URINE NEGATIVE (NEGATIVE); BARBITURATES,URINE NEGATIVE (NEGATIVE); BENZODIAZEPINE,URINE NEGATIVE (NEGATIVE); MDMA (ECSTASY), URINE NEGATIVE (NEGATIVE); METHADONE,URINE NEGATIVE (NEGATIVE); OPIATES,URINE NEGATIVE (NEGATIVE); OXYCODONE,URINE NEGATIVE (NEGATIVE); PHENCYCLIDINE,URINE NEGATIVE (NEGATIVE); TCA,URINE NEGATIVE (NEGATIVE)
[2022-03-08] MEDS: Simethicone 80 MG Tab.Chew PO SCH (21:58)
[2022-03-08] MEDS: Lactated Ringers 1,000 ML IV SCH (22:07)
[2022-03-09] MEDS: Ketorolac 30 MG/ML SDV IVPUSH SCH ×3 (00:53→13:33)
[2022-03-09] MEDS: Lactated Ringers 1,000 ML IV SCH (06:38)
[2022-03-09] MEDS: Simethicone 80 MG Tab.Chew PO SCH ×5 (11:11→20:16)
[2022-03-09] MEDS: Prenatal Multivitamin with Calcium/Folic Acid/Iron Tab PO SCH (11:12)
[2022-03-09] MEDS: Docusate Sodium 100 MG Cap PO PRN (19:49)
[2022-03-09] MEDS: Ibuprofen 800 MG Tab PO PRN (19:49)
[2022-03-09] MEDS: Acetaminophen/oxyCODONE 325-5 MG Tab PO PRN (19:49)
[2022-03-10] MEDS: Acetaminophen/oxyCODONE 325-5 MG Tab PO PRN ×5 (01:29→20:58)
[2022-03-10] MEDS: Ibuprofen 800 MG Tab PO PRN ×2 (05:32→15:02)
[2022-03-10] MEDS: Prenatal Multivitamin with Calcium/Folic Acid/Iron Tab PO SCH (08:43)
[2022-03-10] MEDS: Ferrous Sulfate 325 MG Tab PO SCH (08:43)
[2022-03-10] MEDS: Docusate Sodium 100 MG Cap PO PRN ×2 (08:43→20:58)
[2022-03-10] MEDS: Simethicone 80 MG Tab.Chew PO SCH ×4 (08:43→20:58)
[2022-03-10] MEDS: FLUoxetine 10 MG Cap PO SCH (12:12)
[2022-03-11] MEDS: Acetaminophen/oxyCODONE 325-5 MG Tab PO PRN ×3 (01:39→09:55)
[2022-03-11] MEDS: Ibuprofen 800 MG Tab PO PRN (05:14)
[2022-03-11] MEDS: Docusate Sodium 100 MG Cap PO PRN (08:12)
[2022-03-11] MEDS: FLUoxetine 10 MG Cap PO SCH (08:12)
[2022-03-11] MEDS: Simethicone 80 MG Tab.Chew PO SCH (08:12)
[2022-03-11] MEDS: Ferrous Sulfate 325 MG Tab PO SCH (08:12)
[2022-03-11] MEDS: Prenatal Multivitamin with Calcium/Folic Acid/Iron Tab PO SCH (08:12)
[2022-03-11 08:15] VITALS: BP 94/54; PULSE 56
== END 2022-03-11 11:23 | disposition home or self-care (01) | DRG 787 ==
LOC: DL.OBCHECK 15:31 → DL.OB 17:38
PROVIDERS: ADMIT Family Medicine; ATTEND Family Medicine
PROC: 10D00Z1 Extraction of Products of Conception, Low, Open Approach (ICD-10-PCS; principal; 2022-03-08)
DX: O34.211 Maternal care for low transverse scar from previous cesarean delivery (principal); O98.52 Other viral diseases complicating childbirth; D62 Acute posthemorrhagic anemia; Z37.0 Single live birth; Z3A.37 37 weeks gestation of pregnancy; B00.9 Herpesviral infection, unspecified; O99.344 Other mental disorders complicating childbirth; F41.8 Other specified anxiety disorders; Z20.822 Contact with and (suspected) exposure to COVID-19; O69.81X0 Labor and delivery complicated by cord around neck, without compression, not applicable or unspecified; O99.02 Anemia complicating childbirth
CPT/HCPCS: 01961; 36415; 80305-QW; 85027; 86850; 86900; 86901; A9270-GY; J0690; J1100; J1200; J1885; J2250; J2274; J2405; J2590; J3010; J3490; J7030; J7120; U0002

== ENCOUNTER 2025-04-20 15:59 | Observation (INO) | payer MEDICAID ==
[2025-04-20] MEDS: Lactated Ringers 1,000 ML IV ONE (17:35)
[2025-04-20 17:51] LABS: APPEARANCE,URINE CLEAR (CLEAR); GLUCOSE,URINE NEGATIVE (NEGATIVE); OCCULT BLOOD,URINE NEGATIVE (NEGATIVE)
[2025-04-20] MEDS: Lactated Ringers 1,000 ML IV SCH (19:00)
[2025-04-20] MEDS ORDERED: Lactated Ringers 1,000 ML IV SCH (19:45)
[2025-04-20] MEDS: Betamethasone Acetate/Betamethasone Sod Phosphate 6 MG/1 ML MDV IM SCH (20:20)
[2025-04-21 08:32] VITALS: BP 105/58; PULSE 78
[2025-04-21] MEDS: Terbutaline 1 MG/ML SDV SUBCUT ONE (08:54)
[2025-04-21] MEDS ORDERED: Take Home: hydrOXYzine HCl 25 MG Tab, 4 Tab Pack PO PRN (12:28)
[2025-04-21] MEDS: Take Home: hydrOXYzine HCl 25 MG Tab, 4 Tab Pack PO PRN (13:00)
[2025-04-21] MEDS: Take Home: hydrOXYzine HCl 25 MG Tab, 4 Tab Pack PO ONE (13:01)
== END 2025-04-21 13:15 | disposition home or self-care (01) ==
LOC: DL.OBCHECK 15:59 → DL.OB 19:36
PROVIDERS: ADMIT Family Medicine; ATTEND Family Medicine
DX: O47.00 False labor before 37 completed weeks of gestation, unspecified trimester (principal); Z3A.34 34 weeks gestation of pregnancy; Z79.899 Other long term (current) drug therapy
CPT/HCPCS: 59025; 81003; 87081; 87086; 87210; A9270; J0702; J7120; 96372; G0378; J3105